=== PATIENT | male | born 2000 | race Caucasian/White ===

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

== ENCOUNTER 2020-02-16 10:47 | Emergency (ER) | payer OTHER ==
[~2020-02-16] VITALS: Ht 170.2 cm; Wt 54.4 kg
[2020-02-16] MEDS ORDERED: PROMETHAZINE HCL (IM) 25 MG/ML VIAL IM ONE (11:15)
[2020-02-16] MEDS ORDERED: KETOROLAC TROMETHAMINE 60 MG/2 ML VIAL IM ONE (11:15)
[2020-02-16] MEDS ORDERED: ONDANSETRON HCL 4 MG ORAL DISINTEGRATING TAB PO ONE (11:15)
[2020-02-16 12:07] VITALS: BP 124/65
[2020-02-16] MEDS ORDERED: ONDANSETRON ODT8 MG PO (12:33)
[2020-02-16] MEDS ORDERED: CIPRO500 MG PO (12:33)
[2020-02-16] MEDS ORDERED: PREDNISONE20 MG PO (12:33)
[2020-02-16] MEDS ORDERED: METRONIDAZOLE500 MG PO (12:33)
[2020-02-16] MEDS ORDERED: PHENERGAN SUPP25 MG PR (12:33)
--- NOTE | 2020-02-16 12:33 | Emergency Department Note ---
History of Present Illnes History of Present Illness Chief Complaint: N/V/abdominal pain History of Present Illness This is a 20 year old male. h/o crohn's disease and marijuana induced n/v. was doing well until 1 day ago then abdominal pain(the same as crohn's pain)then n/v. pt has had multiple ct scans f abd/pelvis which have never showed any need for surgical intervention Historian: Patient Arrival Mode: Car History limited by: condition of the patient (normal) Legal Researcher Required: No Onset (how long ago): day(s) (1) Location: generalized abdominal pain Quality: dull Radiation: Reports non-radiation Severity: mild Onset quality: gradual Duration (how long): day(s) (1) Timing of current episode: intermittent Progression: waxing and waning Chronicity: recurrent Context: Denies recent illness, Denies recent surgery, Denies recent immobilization, Denies recent travel, Denies trauma/injury, Denies new medications, Denies hx of DVT/PE, Denies non-compliance w/ medications Relieving factors: none Exacerbating factors: none Associated symptoms: Reports malaise, Reports nausea/vomiting Treatments prior to arrival: none Past Medical/Family History Physician Review I have reviewed the patient's past medical and family history. Any updates have been documented here. Past Medical History Recent Fever: No Clinical Suspicion of Infectio: No New/Unexplained Change in Ment: No Past Medical History: None, Asthma Other Medical History: SMOKES MARIJUANA (I explained last visit earlier this month that he needs to stop, that this could be Cannabinoid Hyperemesis Syndrome but he continues to smoke weed daily, CHRONIC PROBLEM WITH N/V) Past Surgical History: None Other Surgery: denies Social History Smoking Cessation: Current every day smoker Counseling Performed: No Alcohol Use: None Any Illegal Drug Use: Yes (daily marijuana abuse) Other Last Tetanus: UTD Any Pre-Existing Lines (PICC,: No Review of Systems Review of Systems Constitutional: Reports no symptoms EENTM: Reports no symptoms Cardiovascular: Reports no symptoms Respiratory: Reports no symptoms Gastrointestinal: Reports as per HPI Genitourinary: Reports no symptoms Musculoskeletal: Reports no symptoms Integumentary: Reports no symptoms Neurological: Reports no symptoms Psychological: Reports no symptoms Endocrine: Reports no symptoms Hematological/Lymphatic: Reports no symptoms Physical Exam Related Data Allergies: Coded Allergies: No Known Allergies (Unverified , 09/27/13) Triage Vital Signs Vital Signs Date Time Temp Pulse Resp B/P (MAP) Pulse Ox O2 Delivery O2 Flow Rate FiO2 02/16/20 10:51 98.4 57 18 138/70 100 Room Air Vital signs reviewed: Yes Physical Exam CONSTITUTIONAL Constitutional: Present well-developed, Present well-nourished HENT HENT: Present normocephalic, Present atraumatic, Present oropharynx clear/moist, Present nose normal HENT L/R: Present left ext ear normal, Present right ext ear normal EYES Eyes: Reports PERRL, Reports conjunctivae normal NECK Neck: Present ROM normal PULMONARY Pulmonary: Present effort normal, Present breath sounds normal CARDIOVASCULAR Cardiovascular: Present regular rhythm, Present heart sounds normal, Present capillary refill normal, Present normal rate GASTROINTESTINAL Abdominal: Present soft, Present nontender, Present bowel sounds normal GENITOURINARY Genitourinary: Present exam deferred SKIN Skin: Present warm, Present dry MUSCULOSKELETAL Musculoskeletal: Present ROM normal NEUROLOGICAL Neurological: Present alert, Present oriented x 3, Present no gross motor or sensory deficits PSYCHOLOGICAL Psychological: Present mood/affect normal, Present judgement normal Assessment & Plan Medical Decision Making [facility] crohns Reassessment Reassessment time: 12:30 Reassessment symptoms resolved Assessment & Plan Final Impression: (1) Nausea & vomiting (2) Crohn's disease, acute Depart Disposition: HOME, SELF-CARE Last Vital Signs Date Time Temp Pulse Resp B/P (MAP) Pulse Ox O2 Delivery O2 Flow Rate FiO2 02/16/20 12:07 58 18 99 02/16/20 10:51 98.4 138/70 Room Air Home Meds Active Scripts Metronidazole (METRONIDAZOLE) 500 Mg Tablet, 500 MG PO Q8H, #30 TAB take with juice and food Prov:SINDI HERNANDEZ 02/16/20 Ciprofloxacin Hcl (CIPRO) 500 Mg Tablet, 500 MG PO Q12H, #20 TAB Prov:SINDI HERNANDEZ 02/16/20 Prednisone (PREDNISONE) 20 Mg Tab, 60 MG PO DAILY, #15 TAB take all 3 20 mg pills at once Prov:SINDI HERNANDEZ 02/16/20 Promethazine Hcl* (PHENERGAN SUPP*) 25 Mg Supp, 25 MG [place] Q4HR PRN for NAUSEA AND VOMITING, #30 SUPP.RECT 1 Refill take after ondansetron to control nausea/vomiting Prov:SINDI HERNANDEZ 02/16/20 Ondansetron (ONDANSETRON ODT) 8 Mg Tab.rapdis, 4 MG PO Q4HR PRN for NAUSEA AND VOMITING, #30 TAB Prov:SINDI HERNANDEZ 02/16/20 Potassium Chloride (POTASSIUM CHLORIDE) 20 Meq Tab.er.prt, 20 MEQ PO BID for 2 Days, #4 TAB Prov:JOHAN MUNROE [employer]ING [employer] WRITER 05/01/19 Promethazine Hcl* (PHENERGAN SUPP*) 25 Mg Supp, 25 MG RC Q8HR PRN for NAUSEA AND VOMITING for 10 Days, #10 Prov:LASHA DO NP 04/28/19 Medications in the ED Ketorolac Tromethamine 60 mg ONCE ONCE IM Last administered on 02/16/20at 11:24; Admin Dose 60 MG; Start 02/16/20 at 11:15; Stop 02/16/20 at 11:27; Status DC Promethazine HCl 25 mg ONCE ONCE IM Last administered on 02/16/20at 11:25; Admin Dose 25 MG; Start 02/16/20 at 11:15; Stop 02/16/20 at 11:27; Status DC Ondansetron HCl 8 mg ONCE ONCE PO Last administered on 02/16/20at 11:25; Admin Dose 8 MG; Start 02/16/20 at 11:15; Stop 02/16/20 at 11:27; Status DC SINDI HERNANDEZ Feb 16, 2020 12:33
== END 2020-02-16 12:46 | disposition home or self-care (01) ==
LOC: ER 11:20
DX: R11.2 Nausea with vomiting, unspecified (principal); K50.90 Crohn's disease, unspecified, without complications; F17.210 Nicotine dependence, cigarettes, uncomplicated
CPT/HCPCS: 99284; J1885; J2550; Q0162

== ENCOUNTER 2020-02-17 16:15 | Emergency (ER) | payer SELFPAY ==
[~2020-02-17] VITALS: Ht 170.2 cm; Wt 54.4 kg
[~2020-02-17 16:15] MED LIST changes: +CIPRO500 MG PO; +METRONIDAZOLE500 MG PO; +ONDANSETRON ODT8 MG PO; +PHENERGAN SUPP25 MG PR; +PREDNISONE20 MG PO
[2020-02-17] MEDS ORDERED: HALOPERIDOL LACTATE 5 MG/ML VIAL IM ONE (17:15)
[2020-02-17] MEDS ORDERED: PROMETHAZINE HCL 25 MG TAB PO ONE (17:15)
--- NOTE | 2020-02-17 18:07 | Emergency Department Note ---
History of Present Illnes History of Present Illness Chief Complaint: Abdominal Complaints History of Present Illness This is a 20 year old male returns to the ED for n/v prior to arrival . Reports that that his symptoms improved from yesterday but reports that he had sudden onset of n/v . Seen at bedside NAD. Historian: Patient Arrival Mode: Car Onset (how long ago): hour(s) Radiation: Reports non-radiation Severity: mild Onset quality: gradual Progression: partially resolved Chronicity: recurrent Context: Reports new medications, Reports non-compliance w/ medications Relieving factors: none Associated symptoms: Reports nausea/vomiting Previous service: medications given, tests performed, one or more referrals, re-evaluation Past Medical/Family History Physician Review I have reviewed the patient's past medical and family history. Any updates have been documented here. Past Medical History Recent Fever: No Clinical Suspicion of Infectio: No New/Unexplained Change in Ment: No Past Medical History: Asthma Other Medical History: SMOKES MARIJUANA (I explained last visit earlier this month that he needs to stop, that this could be Cannabinoid Hyperemesis Syndrome but he continues to smoke weed daily, CHRONIC PROBLEM WITH N/V) Past Surgical History: None Other Surgery: denies Social History Counseling Performed: Yes Any Illegal Drug Use: Yes Physically hurt or threatened: No Other Last Tetanus: UTD Review of Systems Review of Systems Constitutional: Reports no symptoms EENTM: Reports no symptoms Cardiovascular: Reports no symptoms Respiratory: Reports no symptoms Gastrointestinal: Reports nausea, Reports vomiting Genitourinary: Reports no symptoms Musculoskeletal: Reports no symptoms Integumentary: Reports no symptoms Neurological: Reports no symptoms Psychological: Reports no symptoms Endocrine: Reports no symptoms Hematological/Lymphatic: Reports no symptoms Physical Exam Related Data Allergies: Coded Allergies: No Known Allergies (Unverified , 09/27/13) Triage Vital Signs Vital Signs Date Time Temp Pulse Resp B/P (MAP) Pulse Ox O2 Delivery O2 Flow Rate FiO2 02/17/20 16:20 98.8 71 16 153/91 100 Room Air Vital signs reviewed: Yes Physical Exam CONSTITUTIONAL Constitutional: Present well-developed, Present well-nourished HENT HENT: Present normocephalic, Present atraumatic, Present oropharynx clear/moist, Present nose normal HENT L/R: Present left ext ear normal, Present right ext ear normal EYES Eyes: Reports PERRL, Reports conjunctivae normal NECK Neck: Present ROM normal PULMONARY Pulmonary: Present effort normal, Present breath sounds normal CARDIOVASCULAR Cardiovascular: Present regular rhythm, Present heart sounds normal, Present capillary refill normal, Present normal rate GASTROINTESTINAL Abdominal: Present soft, Present nontender, Present bowel sounds normal GENITOURINARY Genitourinary: Present exam deferred SKIN Skin: Present warm, Present dry MUSCULOSKELETAL Musculoskeletal: Present ROM normal NEUROLOGICAL Neurological: Present alert, Present oriented x 3, Present no gross motor or sensory deficits PSYCHOLOGICAL Psychological: Present mood/affect normal, Present judgement normal Assessment & Plan Medical Decision Making MDM MDM : marijuana induced hyperemesis Assessment & Plan Final Impression: (1) Nausea & vomiting Depart Disposition: LEFT AFTER MEDICAL SCREENING Last Vital Signs Date Time Temp Pulse Resp B/P (MAP) Pulse Ox O2 Delivery O2 Flow Rate FiO2 02/17/20 16:20 98.8 71 16 153/91 100 Room Air Home Meds Active Scripts Metronidazole (METRONIDAZOLE) 500 Mg Tablet, 500 MG PO Q8H, #30 TAB take with juice and food Prov:SINDI HERNANDEZ 02/16/20 Ciprofloxacin Hcl (CIPRO) 500 Mg Tablet, 500 MG PO Q12H, #20 TAB Prov:SINDI HERNANDEZ 02/16/20 Prednisone (PREDNISONE) 20 Mg Tab, 60 MG PO DAILY, #15 TAB take all 3 20 mg pills at once Prov:SINDI HERNANDEZ 02/16/20 Promethazine Hcl* (PHENERGAN SUPP*) 25 Mg Supp, 25 MG [place] Q4HR PRN for NAUSEA AND VOMITING, #30 SUPP.RECT 1 Refill take after ondansetron to control nausea/vomiting Prov:DAVIDSINDIEMILY MICHAEL 02/16/20 Ondansetron (ONDANSETRON ODT) 8 Mg Tab.rapdis, 4 MG PO Q4HR PRN for NAUSEA AND VOMITING, #30 TAB Prov:SINDI HERNANDEZ 02/16/20 Potassium Chloride (POTASSIUM CHLORIDE) 20 Meq Tab.er.prt, 20 MEQ PO BID for 2 Days, #4 TAB Prov:JOHAN MUNROE AIRCRAFT ELECTRICIAN 05/01/19 Promethazine Hcl* (PHENERGAN SUPP*) 25 Mg Supp, 25 MG RC Q8HR PRN for NAUSEA AND VOMITING for 10 Days, #10 Prov:LASHA DO AIRCRAFT ELECTRICIAN 04/28/19 Medications in the ED Promethazine HCl 25 mg NOW ONCE PO ; Start 02/17/20 at 17:15; Stop 02/17/20 at 17:16; Status DC Haloperidol Lactate 2 mg ONCE ONCE IM ; Start 02/17/20 at 17:15; Stop 02/17/20 at 17:16; Status DC KATERIN HERNANDEZ DO Feb 17, 2020 18:07
[2020-02-17] MEDS ORDERED: SODIUM CHLORIDE 0.9% 1000ML 1,000 ML IV STA (18:34)
--- NOTE | 2020-02-17 18:38 | NUR ---
PER MD HERNANDEZ, [facility]. NO EMERGENCY MEDICAL CONDITION EXISTS.
[2020-02-17] MEDS ORDERED: NALOXONE HCL 2MG/2 ML SYRINGE IV ONE (18:45)
[2020-02-17 18:58] VITALS: BP 120/94
--- OUTSIDE RECORDS SUMMARY | 2020-02-19 16:20 | XMS REPORT | Continuity of Care Document ---
Author Author [facility] t Organization [facility] Address [address] [place] [address] Phone Unavailable Care Team Providers Care Network Communications Engineer Name Role Phone NONSTAFF PCP Unavailable Melisa LAINEZ Attphys Unavailable MEHDI FOSS Attphys Unavailable Payers Payer Name Policy Type Policy Number Effective Date Expiration Date Kevin johnson [facility] [id number] [facility] Problems Condition Name Condition Details Condition Category Status Onset Date Resolution Date Last Treatment Date Treating Clinician Comments Source Abdominal pain Abdominal pain Problem Active [facility] Hypokalemia Hypokalemia Problem Active [facility] Vomiting Vomiting Problem Active [facility] Cannabinoid hyperemesis syndrome Problem Active [facility] Nausea and vomiting Problem Active [facility] Acute Crohn's disease Problem Active [facility] Allergies, Adverse Reactions, Alerts This patient has no known allergies or adverse reactions. Social History Social Habit Start Date Stop Date Quantity Comments Source Sex Assigned At 2000 00:00:00 2000 00:00:00 Male [facility] Medications Ordered Medication Name Filled Medication Name Start Date Stop Da te Current Medication? Ordering Clinician Indication Dosage Frequency Signature (SIG) Comments Components Source Ciprofloxacin Hcl (Cipro) 500 Mg TABLET Ciprofloxacin Hcl (C ipro) 500 Mg TABLET 2020-02-16 12:33:00 Yes 500 Every 12 Hours [facility] Metronidazole Metronidazole 2020-02-16 12:33:00 Yes 50 0 Every 8 Hours [facility] Ondansetron (Ondansetron Odt) 8 Mg TAB.HELADIODIS Ondanset blair (Ondansetron Odt) 8 Mg TAB.RAPDIS 2020-02-16 12:33:00 Yes 4 E very 4 Hours as needed for Nausea And Vomiting [facility] Prednisone Prednisone 2020-02-16 12:33:00 Yes [address] [place] [address] [facility] Promethazine Hcl (Phenergan Supp*) 25 Mg SUPP Prometha zine Hcl (Phenergan Supp*) 25 Mg SUPP 2020-02-16 12:33:00 Yes 25 E very 4 Hours as needed for Nausea And Vomiting [facility] Potassium Chloride Potassium Chloride 2019-05-01 18:37:00 Yes 20 Twice A Day [facility] Promethazine Hcl (Phenergan Supp*) 25 Mg SUPP Prometha zine Hcl (Phenergan Supp*) 25 Mg SUPP 2019-04-28 13:40:00 Yes 25 E very 8 Hours as needed for Nausea And Vomiting [facility] Cetirizine Hcl (Zyrtec) 10 Mg TAB.CHEW Cetirizine Hcl (Zyrtec) 1 0 Mg TAB.CHEW 2019-04-27 00:00:00 No [facility] Montelukast Sodium (Singulair) [address] Sodium (Singulair) 4 Mg TAB.CHEW 2019-04-27 00:00:00 No [facility] Vital Signs Vital Name Observation Time Observation Value Comments Source Weight 2020-02-17 16:20:00 120 [lb_av] [facility] BMI (Body Mass Index) 2020-02-17 16:20:00 18.8 kg/m2 [facility] Body Temperature 2020-02-16 12:07:00 98.3 [degF] [facility] Weight 2020-02-16 10:51:00 120 [lb_av] [facility] BMI (Body Mass Index) 2020-02-16 10:51:00 18.8 kg/m2 [facility] Body Temperature 2019-11-23 11:02:00 98.0 [degF] [facility] Weight 2019-11-23 08:17:00 120 [lb_av] [facility] BMI (Body Mass Index) 2019-11-23 08:17:00 18.8 kg/m2 [facility] Weight 2019-11-01 11:48:00 120 [lb_av] [facility] BMI (Body Mass Index) 2019-11-01 11:48:00 18.8 kg/m2 [facility] Body Temperature 2019-04-28 14:50:00 98.7 [degF] [facility] Procedures Procedure Date / Time Performed Performing Clinician [facility] [place] Computed tomography of brain without radiopaque contrast 2020-01 00:00:00 [facility] EMERGENCY DEPT VISIT 2020-02-16 00:00:00 [facility] Computed tomography of abdomen and pelvis with contrast 00:00:00 [facility] Computed tomography of abdomen and pelvis with contrast 2018 00:00:00 KEMAL BLUM [facility] Encounters Start Date/Time End Date[facility]Time [facility] ID Source 2020-02-17 16:49:00 2020-02-17 19:00:00 Departed Emergency Room [facility] [id number] [facility] 2020-02-16 11:20:00 2020-02-16 12:46:00 Departed Emergency Room [facility] [id number] [facility] 2019-11-23 08:20:00 2019-11-23 11:31:00 Departed Emergency Room 1 [facility] [id number] [facility] 2019-11-01 11:38:00 2019-11-01 14:36:00 Departed Emergency Room 1 [facility] [id number] [facility] 2019-05-01 16:45:00 2019-05-01 19:42:00 Departed Emergency Room [facility] [id number] [facility] [place] 2019-04-27 16:52:00 2019-04-28 14:56:00 Discharged Inpatient (obs) 1 MEHDI FOSS [facility] [id number] [facility] 2019-01-09 05:57:00 2019-01-09 11:31:00 Departed Emergency Room 1 ALTAGRACIA LAINEZ [facility] [id number] [facility] Results Test Description Test Time Test Comments Results Result Comments Source CT ABDOMEN/PELVIS W 2019-11-23 10:15:00 [place] [address] Patient Name: JING GARZA MR #: [id number] : 2000 Age/Sex: 19/M Req #: [id number] Adm Physician: Ordered by: ALTAGRACIA LAINEZ MD Report #: [id number] Location: ER Room/Bed: Procedure: [id number] CT/CT ABDOMEN/PELVIS W Exam Date: 11/23/19 Exam Time: 0950 REPORT STATUS: Signed EXAM: CT Abdomen and Pelvis WITH intravenous contrast INDICATION: Abdominal pain COMPARISON: CT abdomen and pelvis of 04/27/2019 TECHNIQUE: Abdomen and pelvis were scanned utilizing a multidetector helical scanner from the lung base to the pubic sym physis after administration of IV contrast. Coronal and sagittal reformations were obtained. Routine protocol was performed. Scan was performed during portal venous phase. IV CONTRAST: 100mL of Isovue 370 ORAL CONTRAST: Water RADIATION DOSE: Total DLP: 263 mGy*cm Dose modulation, iterative reconstruction, and/or weight based adjustment of the mA/kV was utilized to reduce the radiation dose to as low as reasonably achievable. FINDINGS: LOWER THORAX: Normal. HEPATOBILIARY: No focal hepatic lesions. No biliary ductal dilatation. The gallbladder appears unremarkable. SPLEEN: No splenomegaly. PANCREAS: No focal masses or ductal dilatation. ADRENALS: No adrenal nodules. KIDNEYS/URETERS: No hydronephrosis, stones, or solid mass lesions. PELVIC ORGANS/BLADDER: Unremarkable. PERITONEUM / RETROPERITONEUM: No free air or fluid. LYMPH NODES: No lymphadenopathy. VESSELS: Unremarkable. GI TRACT: No distention or wall thickening. Normal appendix. BONES AND SOFT TISSUES: Unremarkable. IMPRESSION: No acute findings in the abdomen or pelvis. Signed by: Ivania Story MD on 11/23/2019 10:21 AM Dictated By: IVANIA STORY MD 1021 Transcribed By: SUMAYA on 11/23/19 1021 COPY TO: ALTAGRACIA LAINEZ MD Blood leukocytes automated count (number/volume) 2019-11-23 08:26:00 Test Item White Blood Count (test code = 6690-2) 16.00 4.8-10.8 [facility] automated count (number/volume)2019-11-23 08:26:00* Test Item Value Reference Range Interpretation Comments Red Blood Count (test code = 789-8) 4.96 4.3-5.7 [facility] hemoglobin measurement (moles/volume)2019-11-23 08:26:00* Test Item Value Reference Range Interpretation Comments Hemoglobin (test code = 78176-4) 15.4 14.0-18.0 [facility] HospitalAutomated blood hematocrit (volume fraction)2019-11-23 08:26:00* Test Item Value Reference Range Interpretation Comments Hematocrit (test code = 4544-3) 41.6 38.2-49.6 [facility] HospitalAutomated erythrocyte mean corpuscular tusgae8530-25-24 08:26:00* Test Item Value Reference Range Interpretation Comments Mean Corpuscular Volume (test code = 787-2) 83.9 81-99 [facility] HospitalAutomated erythrocyte mean corpuscular hemoglobin (mass per erythrocyte)2019-11-23 08:26:00* Test Item Value Reference Range Interpretation Comments Mean Corpuscular Hemoglobin (test code = 785-6) 31.0 28-32 [facility] HospitalAutomated erythrocyte mean corpuscular hemoglobin concentration measurement (mass/volume)2019-11-23 08:26:00* Test Item Value Reference Range Interpretation Comments Mean Corpuscular Hemoglobin Concent (test code = 786-4) 37.0 31-35 [facility] HospitalRDW FxfJj-Akf5457-61-01 08:26:00* Test Item Value Reference Range Interpretation Comments Red Cell Distribution Width (test code = 65514-2) 11.6 11.7 -14.4 [facility] HospitalAutomated blood platelet count (count/volume)2019-11-23 08:26:00* Test Item Value Reference Range Interpretation Comments Platelet Count (test code = 777-3) 240 140-360 [facility] HospitalAutnov[facility] hospitaled blood segmented neutrophil count as percentage of total iatuminfsh7227-35-14 08:26:00* Test Item Value Reference Range Interpretation Comments Neutrophils (%) (Auto) (test code = 72505-8) 88.6 38.7-80.0 [facility] HospitalAutomated blood lymphocyte count as percentage ot total qpbpjzbnum2408-47-83 08:26:00* Test Item Value Reference Range Interpretation Comments Lymphocytes (%) (Auto) (test code = 736-9) 5.7 18.0-39.1 [facility] HospitalAutomated blood monocyte count as percentage of total nlbdrzacsb7068-94-23 08:26:00* Test Item Value Reference Range Interpretation Comments Monocytes (%) (Auto) (test code = 5905-5) 4.8 4.4-11.3 [facility] HospitalAutomated blood eosinophil count as percentage of total gwdcbhfaon1662-55-36 08:26:00* Test Item Value Reference Range Interpretation Comments Eosinophils (%) (Auto) (test code = 713-8) 0.0 0.0-6.0 [facility] HospitalAutomated blood basophil count as percentage of total pfbmhdnrep9403-32-43 08:26:00* Test Item Value Reference Range Interpretation Comments Basophils (%) (Auto) (test code = 706-2) 0.4 0.0-1.0 [facility] HospitalFluoroscopic procedure less than one hour orziddbo6746-87-22 08:26:00* Test Item Value Reference Range Interpretation Comments IM GRANULOCYTES % (test code = IM GRANULOCYTES %) 0.5 0.0- 1.0 [facility] HospitalAutomated blood neutrophil count 2019-11-23 08:26:00* Test Item Value Reference Range Interpretation Comments Neutrophils # (Auto) (test code = 751-8) 14.2 2.1-6.9 [facility] HospitalBlood lymphocytes count (number/volume) 2019-11-23 08:26:00* Test Item Value Reference Range Interpretation Comments Lymphocytes # (Auto) (test code = 55001-9) 0.9 1.0-3.2 [facility] monocytes automated count (number/volume)2019-11-23 08:26:00* Test Item Value Reference Range Interpretation Comments Monocytes # (Auto) (test code = 742-7) 0.8 0.2-0.8 [facility] HospitalAutomated blood eosinophil count 2019-11-23 08:26:00* Test Item Value Reference Range Interpretation Comments Eosinophils # (Auto) (test code = 711-2) 0.0 0.0-0.4 [facility] HospitalAutomated blood basophil count (count/volume)2019-11-23 08:26:00* Test Item Value Reference Range Interpretation Comments Basophils # (Auto) (test code = 704-7) 0.1 0.0-0.1 [facility] HospitalFluoroscopic procedure less than one hour ujqicczz3953-67-73 08:26:00* Test Item Value Reference Range Interpretation Comments Absolute Immature Granulocyte (auto (inocencio t code = Absolute Immature Granulocyte (auto) 0.08 0-0.1 [facility] HospitalUrine color yzlfppzxdghpp0404-59-32 08:26:00* Test Item Value Reference Range Interpretation Comments Urine Color (test code = 5778-6) YELLOW YELLOW [facility] HospitalUrine iadoywq2174-49-76 08:26:00* Test Item Value Reference Range Interpretation Comments Urine Clarity (test code = 99197-4) CLEAR CLEAR [facility] Urine by Test strip 2019-11-23 08:26:00* Test Item Value Reference Range Interpretation Comments Urine Specific [place] (test code = 5811-5) 1.015 1.010-1.02 5 [facility] HospitalUrine pH measurement by automated test mzdea9188-10-32 08:26:00* Test Item Value Reference Range Interpretation Comments Urine pH (test code = 49344-0) >=9 5-7 [facility] HospitalUrine leukocyte esterase detection by orvfgdzl6261-79-20 08:26:00* Test Item Value Reference Range Interpretation Comments Urine Leukocyte Esterase (test code = 5799-2) NEGATIVE NEGATIVE [facility] HospitalUrine nitrite ddfcumlad1548-69-78 08:26:00* Test Item Value Reference Range Interpretation Comments Urine Nitrite (test code = 89190-6) NEGATIVE NEGATIVE [facility] HospitalUrine protein measurement by test strip (mass/volume)2019-11-23 08:26:00* Test Item Value Reference Range Interpretation Comments Urine Protein (test code = 5804-0) 2+ NEGATIVE [facility] HospitalUrine glucose fbvkekueg2939-15-57 08:26:00* Test Item Value Reference Range Interpretation Comments Urine Glucose (UA) (test code = 2349-9) NEGATIVE NEGATIVE [facility] HospitalUrine ketones detection by automated test mijop4597-50-51 08:26:00* Test Item Value Reference Range Interpretation Comments Urine Ketones (test code = 71675-7) >=160 NEGATIVE [facility] HospitalUrine opiates screening ekvh5094-30-62 08:26:00* Test Item Value Reference Range Interpretation Comments Urine Opiates Screen (test code = 75021-6) NEGATIVE NEGATIVE ALL TESTS PERFORMED MANUALLY ON BIlprospekt TOX/SEE TESTMethodist Children's HospitalBarbiturates screen, fnvpa1955-64-47 08:26:00* Test Item Value Reference Range Interpretation Comments Urine Barbiturates Screen (test code = 852625838) NEGATIVE NEGA TIVE [facility] HospitalUrine phencyclidine detection by screening xykiao0258-86-21 08:26:00* Test Item Value Reference Range Interpretation Comments Urine Phencyclidine Screen (test code = 30063-9) NEGATIVE NEGAT SIMI [facility] HospitalUrine amphetamines detection by screen method > 1000 ng/oB8829-54-22 08:26:00* Test Item Value Reference Range Interpretation Comments Urine Amphetamines Screen (test code = 46113-6) NEGATIVE NEGATI VE [facility] HospitalFluoroscopic procedure less than one hour kbwbxezo6874-38-04 08:26:00* Test Item Value Reference Range Interpretation Comments Urine Methamphetamines Screen (test code = Urine Metha mphetamines Screen) NEGATIVE NEGATIVE [facility] HospitalUrine benzodiazepines detection by screening xqtipw2924-59-88 08:26:00* Test Item Value Reference Range Interpretation Comments Urine Benzodiazepines Screen (test code = 67180-0) NEGATIVE NEG ATIVE [facility] HospitalUrine cocaine measurement (mass/volume) 2019-11-23 08:26:00* Test Item Value Reference Range Interpretation Comments Urine Cocaine Screen (test code = 3398-5) NEGATIVE NEGATIVE [facility] HospitalUrine cannabinoids detection by screening aqviwt5761-05-80 08:26:00* Test Item Value Reference Range Interpretation Comments Urine Cannabinoids Screen (test code = 69435-1) POSITIVE NEGATI VE This test provides only a screen. Positive results should be repeated by a confi rmatory test.[facility] HospitalUrine methadone screen 2019-11-23 08:26:00* Test Item Value Reference Range Interpretation Comments Urine Methadone Screen (test code = 39607-5) NEGATIVE NEGATIVE THESE RESULTS ARE FOR MEDICAL TREATMENT ONLYTHIS REPORT CONTAINS UNCONFIR MED SCREENING RESULTS*POSITIVE RESULTS WILL BE CONFIRMED BY REFERENCE LAB UPON R EQUEST CUT-OFFDRUG CLASS CONCENTRATION ng/mLAmphetamines 1000Methamphetamines 1000Cocaine Metabolite 300Opiate 300Phencyc lidine 25Cannabinoid 50Barbiturates 300Benzodiazepine 300Methadone 300[facility] urobilinogen measurement by test strip (mass/volume)2019-11-23 08:26:00* Test Item Value Reference Range Interpretation Comments Urine Urobilinogen (test code = 62795-7) 0.2 0.2-1 [facility] HospitalUrine total bilirubin measurement (mass/volume)2019-11-23 08:26:00* Test Item Value Reference Range Interpretation Comments Urine Bilirubin (test code = 1978-6) NEGATIVE NEGATIVE [facility] HospitalUrine erythrocytes atihifpwv0460-23-05 08:26:00* Test Item Value Reference Range Interpretation Comments Urine Blood (test code = 97433-5) NEGATIVE NEGATIVE [facility] HospitalAutomated urine sediment leukocyte count by microscopy (number/high power field)2019-11-23 08:26:00* Test Item Value Reference Range Interpretation Comments Urine WBC (test code = 5821-4) 0-5 0-5 [facility] HospitalErythrocytes detection in urine sediment by light qljtwlbxqp4263-69-54 08:26:00* Test Item Value Reference Range Interpretation Comments Urine RBC (test code = 56770-4) 0-5 0-5 [facility] HospitalBacteria detection in urine sediment by light qcvzidxjyf3422-09-72 08:26:00* Test Item Value Reference Range Interpretation Comments Urine Bacteria (test code = 21962-4) MODERATE NONE [facility] HospitalEpithelial cells detection in urine sediment by light ayznuucgat2532-51-78 08:26:00* Test Item Value Reference Range Interpretation Comments Urine Epithelial Cells (test code = 93242-7) RARE NONE [facility]ere[facility] or plasma sodium measurement (moles/volume)2019-11-23 08:26:00* Test Item Value Reference Range Interpretation Comments Sodium Level (test code = 2951-2) 142 136-145 [facility] Centererum or plasma potassium measurement (moles/volume)2019-11-23 08:26:00* Test Item Value Reference Range Interpretation Comments Potassium Level (test code = 2823-3) 3.8 3.5-5.1 [facility] Centererum or plasma chloride measurement (moles/volume)2019-11-23 08:26:00* Test Item Value Reference Range Interpretation Comments Chloride Level (test code = 2075-0) 106 98-107 [facility] Centererum or plasma carbon dioxide, total measurement (moles/volume)2019-11-23 08:26:00* Test Item Value Reference Range Interpretation Comments Carbon Dioxide Level (test code = 2028-9) 21 22-29 [facility] Centererum or plasma anion ysc6104-00-71 08:26:00* Test Item Value Reference Range Interpretation Comments Anion Gap (test code = 69210-1) 18.8 8-16 [facility]ere[facility] or plasma urea nitrogen measurement (mass/volume)2019-11-23 08:26:00* Test Item Value Reference Range Interpretation Comments Blood Urea Nitrogen (test code = 3094-0) 12 7- [facility]ererum or plasma creatinine measurement (mass/volume)2019-11-23 08:26:00* Test Item Value Reference Range Interpretation Comments Creatinine (test code = 2160-0) 0.97 0.72-1.25 [facility]ererum or plasma urea nitrogen/creatinine mass vjzxc0430-40-41 08:26:00* Test Item Value Reference Range Interpretation Comments BUN/Creatinine Ratio (test code = 3097-3) 12 6-25 [facility] HospitalEstimated glomerular filtration rate (GFR) fmetbparsuajg7053-39-30 08:26:00* Test Item Value Reference Range Interpretation Comments Estimat Glomerular Filtration Rate (test code = 112756966) > 60 >60 Ranges were taken from the National Kidney Disease Education Program and the [facility], [facility] Kid[employer] Foundation literature.Reference ranges:60 or greater: Mzwuob91-04 ( for 3 consecutive months): Chronic kidney disease 15 or less: Kidney failureMethodist Children's HospitalGlucose dgtykcbkrsq3028-30-78 08:26:00* Test Item Value Reference Range Interpretation Comments Glucose Level (test code = RWL6308) 164 74-118 [facility]ere[facility] or plasma calcium measurement (mass/volume)2019-11-23 08:26:00* Test Item Value Reference Range Interpretation Comments Calcium Level (test code = 70113-1) 10.7 8.4-10.2 [facility] plasma magnesium measurement (mass/volume)2019-11-23 08:26:00* Test Item Value Reference Range Interpretation Comments Magnesium Level (test code = 15753-6) 1.8 1.3-2.1 [facility] or plasma total bilirubin measurement (mass/volume)2019-11-23 08:26:00* Test Item Value Reference Range Interpretation Comments Total Bilirubin (test code = 1975-2) 0.9 0.2-1.2 [facility] HospitalFluoroscopic procedure less than one hour iyusdolg6806-11-69 08:26:00* Test Item Value Reference Range Interpretation Comments Aspartate Amino Transf (AST/SGOT) (test code = Aspartate Amino Transf (AST/SGOT)) 18 5-34 [facility]ererum or plasma alanine aminotransferase measurement (enzymatic activity/volume)2019-11-23 08:26:00* Test Item Value Reference Range Interpretation Comments Alanine Aminotransferase (ALT/SGPT) (test code = 1742-6) 21 0-55 [facility]ere[facility] or plasma protein measurement (mass/volume)2019-11-23 08:26:00* Test Item Value Reference Range Interpretation Comments Total Protein (test code = 2885-2) 7.9 6.5-8.1 [facility]ere[facility] or plasma albumin measurement (mass/volume)2019-11-23 08:26:00* Test Item Value Reference Range Interpretation Comments Albumin (test code = 1751-7) 5.2 3.5-5.0 [facility] HospitalPlasma globulin measurement (mass/volume) 2019-11-23 08:26:00* Test Item Value Reference Range Interpretation Comments Globulin (test code = 70856-8) 2.7 2.3-3.5 [facility]ere[facility] or plasma albumin/globulin mass aixyi9293-96-73 08:26:00* Test Item Value Reference Range Interpretation Comments Albumin/Globulin Ratio (test code = 1759-0) 1.9 0.8-2.0 [facility]ererum or plasma alkaline phosphatase measurement (enzymatic activity/volume)2019-11-23 08:26:00* Test Item Value Reference Range Interpretation Comments Alkaline Phosphatase (test code = 6768-6) 78 40-150 [facility]Bl[facility] leukocytes automated count (number/volume)2019-11-23 08:26:00* Test Item Value Reference Range Interpretation Comments White Blood Count (test code = 6690-2) 16.00 4.8-10.8 [facility] HospitalBlood erythrocytes automated count (number/volume)2019-11-23 08:26:00* Test Item Value Reference Range Interpretation Comments Red Blood Count (test code = 789-8) 4.96 4.3-5.7 [facility] hemoglobin measurement (moles/volume)2019-11-23 08:26:00* Test Item Value Reference Range Interpretation Comments Hemoglobin (test code = 92248-2) 15.4 14.0-18.0 [facility] HospitalAutomated blood hematocrit (volume fraction)2019-11-23 08:26:00* Test Item Value Reference Range Interpretation Comments Hematocrit (test code = 4544-3) 41.6 38.2-49.6 [facility] HospitalAutomated erythrocyte mean corpuscular zvlacx1151-71-69 08:26:00* Test Item Value Reference Range Interpretation Comments Mean Corpuscular Volume (test code = 787-2) 83.9 81-99 [facility] HospitalAutomated erythrocyte mean corpuscular hemoglobin (mass per erythrocyte)2019-11-23 08:26:00* Test Item Value Reference Range Interpretation Comments Mean Corpuscular Hemoglobin (test code = 785-6) 31.0 28-32 [facility] HospitalAutomated erythrocyte mean corpuscular hemoglobin concentration measurement (mass/volume)2019-11-23 08:26:00* Test Item Value Reference Range Interpretation Comments Mean Corpuscular Hemoglobin Concent (test code = 786-4) 37.0 31-35 [facility] HospitalRDW NxsTy-Hdr1453-64-01 08:26:00* Test Item Value Reference Range Interpretation Comments Red Cell Distribution Width (test code = 97804-4) 11.6 11.7 -14.4 [facility] HospitalAutomated blood platelet count (count/volume)2019-11-23 08:26:00* Test Item Value Reference Range Interpretation Comments Platelet Count (test code = 777-3) 240 140-360 [facility] HospitalAutomated blood segmented neutrophil count as percentage of total pdmoestycm5828-40-04 08:26:00* Test Item Value Reference Range Interpretation Comments Neutrophils (%) (Auto) (test code = 15390-6) 88.6 38.7-80.0 [facility] HospitalAutnovant health [facility] hospitaled blood lymphocyte count as percentage ot total tmikwtlxiy6302-42-02 08:26:00* Test Item Value Reference Range Interpretation Comments Lymphocytes (%) (Auto) (test code = 736-9) 5.7 18.0-39.1 [facility] HospitalAutomated blood monocyte count as percentage of total qcyczzjlfa0362-23-77 08:26:00* Test Item Value Reference Range Interpretation Comments Monocytes (%) (Auto) (test code = 5905-5) 4.8 4.4-11.3 [facility] eosinophil count as percentage of total hgpdvlicos4163-95-71 08:26:00* Test Item Value Reference Range Interpretation Comments Eosinophils (%) (Auto) (test code = 713-8) 0.0 0.0-6.0 [facility] HospitalAutomated blood basophil count as percentage of total bihqbklggr6538-51-17 08:26:00* Test Item Value Reference Range Interpretation Comments Basophils (%) (Auto) (test code = 706-2) 0.4 0.0-1.0 [facility] HospitalFluoroscopic procedure less than one hour vwgaiiof5191-63-85 08:26:00* Test Item Value Reference Range Interpretation Comments IM GRANULOCYTES % (test code = IM GRANULOCYTES %) 0.5 0.0- 1.0 [facility] HospitalAutomated blood neutrophil count 2019-11-23 08:26:00* Test Item Value Reference Range Interpretation Comments Neutrophils # (Auto) (test code = 751-8) 14.2 2.1-6.9 [facility] HospitalBlood lymphocytes count (number/volume) 2019-11-23 08:26:00* Test Item Value Reference Range Interpretation Comments Lymphocytes # (Auto) (test code = 26847-5) 0.9 1.0-3.2 [facility] HospitalBlood monocytes automated count (number/volume)2019-11-23 08:26:00* Test Item Value Reference Range Interpretation Comments Monocytes # (Auto) (test code = 742-7) 0.8 0.2-0.8 [facility] HospitalAutomated blood eosinophil count 2019-11-23 08:26:00* Test Item Value Reference Range Interpretation Comments Eosinophils # (Auto) (test code = 711-2) 0.0 0.0-0.4 [facility] HospitalAutomated blood basophil count (count/volume)2019-11-23 08:26:00* Test Item Value Reference Range Interpretation Comments Basophils # (Auto) (test code = 704-7) 0.1 0.0-0.1 [facility] HospitalFluoroscopic procedure less than one hour cfvhmplq0311-75-07 08:26:00* Test Item Value Reference Range Interpretation Comments Absolute Immature Granulocyte (auto (inocencio t code = Absolute Immature Granulocyte (auto) 0.08 0-0.1 [facility] HospitalUrine color vdpywyeidbhsl4420-81-12 08:26:00* Test Item Value Reference Range Interpretation Comments Urine Color (test code = 5778-6) YELLOW YELLOW [facility] HospitalUrine upvssfl9941-43-60 08:26:00* Test Item Value Reference Range Interpretation Comments Urine Clarity (test code = 51653-4) CLEAR CLEAR [facility] Urine by Test strip 2019-11-23 08:26:00* Test Item Value Reference Range Interpretation Comments Urine Specific [place] (test code = 5811-5) 1.015 1.010-1.02 5 [facility] HospitalUrine pH measurement by automated test vgevp7475-75-00 08:26:00* Test Item Value Reference Range Interpretation Comments Urine pH (test code = 57754-8) >=9 5-7 [facility] HospitalUrine leukocyte esterase detection by wcinqorp3533-97-80 08:26:00* Test Item Value Reference Range Interpretation Comments Urine Leukocyte Esterase (test code = 5799-2) NEGATIVE NEGATIVE [facility] HospitalUrine nitrite ptmxfxpdt4618-55-01 08:26:00* Test Item Value Reference Range Interpretation Comments Urine Nitrite (test code = 26394-5) NEGATIVE NEGATIVE [facility] HospitalUrine protein measurement by test strip (mass/volume)2019-11-23 08:26:00* Test Item Value Reference Range Interpretation Comments Urine Protein (test code = 5804-0) 2+ NEGATIVE [facility] HospitalUrine glucose tsjzzodjt0449-48-83 08:26:00* Test Item Value Reference Range Interpretation Comments Urine Glucose (UA) (test code = 2349-9) NEGATIVE NEGATIVE [facility] HospitalUrine ketones detection by automated test opvli3681-45-09 08:26:00* Test Item Value Reference Range Interpretation Comments Urine Ketones (test code = 28639-1) >=160 NEGATIVE [facility] HospitalUrine opiates screening orfo3508-35-97 08:26:00* Test Item Value Reference Range Interpretation Comments Urine Opiates Screen (test code = 15519-2) NEGATIVE NEGATIVE ALL TESTS PERFORMED MANUALLY ON BIlprospekt TOX/SEE TESTMethodist Children's HospitalBarbiturates screen, olzys7834-21-17 08:26:00* Test Item Value Reference Range Interpretation Comments Urine Barbiturates Screen (test code = 107405037) NEGATIVE NEGA TIVE [facility] HospitalUrine phencyclidine detection by screening xpwcme7200-64-13 08:26:00* Test Item Value Reference Range Interpretation Comments Urine Phencyclidine Screen (test code = 78701-1) NEGATIVE NEGAT SIMI [facility] HospitalUrine amphetamines detection by screen method > 1000 ng/fW6672-72-28 08:26:00* Test Item Value Reference Range Interpretation Comments Urine Amphetamines Screen (test code = 53304-1) NEGATIVE NEGATI VE [facility] HospitalFluoroscopic procedure less than one hour idikfeqf4432-79-02 08:26:00* Test Item Value Reference Range Interpretation Comments Urine Methamphetamines Screen (test code = Urine Metha mphetamines Screen) NEGATIVE NEGATIVE [facility] HospitalUrine benzodiazepines detection by screening skfqtc6818-13-99 08:26:00* Test Item Value Reference Range Interpretation Comments Urine Benzodiazepines Screen (test code = 49887-3) NEGATIVE NEG ATIVE [facility] HospitalUrine cocaine measurement (mass/volume) 2019-11-23 08:26:00* Test Item Value Reference Range Interpretation Comments Urine Cocaine Screen (test code = 3398-5) NEGATIVE NEGATIVE [facility] HospitalUrine cannabinoids detection by screening wvbchu1272-36-13 08:26:00* Test Item Value Reference Range Interpretation Comments Urine Cannabinoids Screen (test code = 11292-6) POSITIVE NEGATI VE This test provides only a screen. Positive results should be repeated by a confi rmatory test.[facility] HospitalUrine methadone screen 2019-11-23 08:26:00* Test Item Value Reference Range Interpretation Comments Urine Methadone Screen (test code = 84583-8) NEGATIVE NEGATIVE THESE RESULTS ARE FOR MEDICAL TREATMENT ONLYTHIS REPORT CONTAINS UNCONFIR MED SCREENING RESULTS*POSITIVE RESULTS WILL BE CONFIRMED BY REFERENCE LAB UPON R EQUEST CUT-OFFDRUG CLASS CONCENTRATION ng/mLAmphetamines 1000Methamphetamines 1000Cocaine Metabolite 300Opiate 300Phencyc lidine 25Cannabinoid 50Barbiturates 300Benzodiazepine 300Methadone 300[facility] urobilinogen measurement by test strip (mass/volume)2019-11-23 08:26:00* Test Item Value Reference Range Interpretation Comments Urine Urobilinogen (test code = 85047-0) 0.2 0.2-1 [facility] HospitalUrine total bilirubin measurement (mass/volume)2019-11-23 08:26:00* Test Item Value Reference Range Interpretation Comments Urine Bilirubin (test code = 1978-6) NEGATIVE NEGATIVE [facility] HospitalUrine erythrocytes lbyeskbob4932-37-80 08:26:00* Test Item Value Reference Range Interpretation Comments Urine Blood (test code = 42493-5) NEGATIVE NEGATIVE [facility] HospitalAutomated urine sediment leukocyte count by microscopy (number/high power field)2019-11-23 08:26:00* Test Item Value Reference Range Interpretation Comments Urine WBC (test code = 5821-4) 0-5 0-5 [facility] HospitalErythrocytes detection in urine sediment by light qetahvatfb6765-42-51 08:26:00* Test Item Value Reference Range Interpretation Comments Urine RBC (test code = 55201-4) 0-5 0-5 [facility] HospitalBacteria detection in urine sediment by light rrccubjlmp0892-33-53 08:26:00* Test Item Value Reference Range Interpretation Comments Urine Bacteria (test code = 17404-9) MODERATE NONE [facility] HospitalEpithelial cells detection in urine sediment by light rnolssbtfo9930-89-13 08:26:00* Test Item Value Reference Range Interpretation Comments Urine Epithelial Cells (test code = 49162-9) RARE NONE [facility]ererum [facility] plasma sodium measurement (moles/volume)2019-11-23 08:26:00* Test Item Value Reference Range Interpretation Comments Sodium Level (test code = 2951-2) 142 136-145 [facility]ererum or plasma potassium measurement (moles/volume)2019-11-23 08:26:00* Test Item Value Reference Range Interpretation Comments Potassium Level (test code = 2823-3) 3.8 3.5-5.1 [facility]ere[facility] or plasma chloride measurement (moles/volume)2019-11-23 08:26:00* Test Item Value Reference Range Interpretation Comments Chloride Level (test code = 2075-0) 106 98-107 [facility]ererum or plasma carbon dioxide, total measurement (moles/volume)2019-11-23 08:26:00* Test Item Value Reference Range Interpretation Comments Carbon Dioxide Level (test code = 2028-9) 21 22-29 [facility]ererum or plasma anion [id number] 08:26:00* Test Item Value Reference Range Interpretation Comments Anion Gap (test code = 47534-9) 18.8 8-16 [facility]ererum or plasma urea nitrogen measurement (mass/volume)2019-11-23 08:26:00* Test Item Value Reference Range Interpretation Comments Blood Urea Nitrogen (test code = 3094-0) 12 12-17 [facility]ererum or plasma creatinine measurement (mass/volume)2019-11-23 08:26:00* Test Item Value Reference Range Interpretation Comments Creatinine (test code = 2160-0) 0.97 0.72-1.25 [facility]ererum or plasma urea nitrogen/creatinine mass wveaq4141-91-98 08:26:00* Test Item Value Reference Range Interpretation Comments BUN/Creatinine Ratio (test code = 3097-3) 12 11-16 [facility] HospitalEstimated glomerular filtration rate (GFR) gnsmlqinfkzzl9394-52-12 08:26:00* Test Item Value Reference Range Interpretation Comments Estimat Glomerular Filtration Rate (test code = 724388809) > 60 >60 Ranges were taken from the National Kidney Disease Education Program and the Count includes the [facility] Kidney Foundation literature.Reference ranges:60 or greater: Zkkcvn49-33 ( for 3 consecutive months): Chronic kidney disease 15 or less: Kidney failureMethodist Children's HospitalGlucose dwsfthjwego9976-17-21 08:26:00* Test Item Value Reference Range Interpretation Comments Glucose Level (test code = VBW3916) 164 74-118 [facility]ererum or plasma calcium measurement (mass/volume)2019-11-23 08:26:00* Test Item Value Reference Range Interpretation Comments Calcium Level (test code = 70542-1) 10.7 8.4-10.2 [facility]ererum or plasma magnesium measurement (mass/volume)2019-11-23 08:26:00* Test Item Value Reference Range Interpretation Comments Magnesium Level (test code = 43047-0) 1.8 1.3-2.1 [facility]ererum or plasma total bilirubin measurement (mass/volume)2019-11-23 08:26:00* Test Item Value Reference Range Interpretation Comments Total Bilirubin (test code = 1975-2) 0.9 0.2-1.2 [facility] HospitalFluoroscopic procedure less than one hour bfuphmzw0164-39-99 08:26:00* Test Item Value Reference Range Interpretation Comments Aspartate Amino Transf (AST/SGOT) (test code = Aspartate Amino Transf (AST/SGOT)) 18 5-34 [facility] Centererum or plasma alanine aminotransferase measurement (enzymatic activity/volume)2019-11-23 08:26:00* Test Item Value Reference Range Interpretation Comments Alanine Aminotransferase (ALT/SGPT) (test code = 1742-6) 21 0-55 [facility]ererum or plasma protein measurement (mass/volume)2019-11-23 08:26:00* Test Item Value Reference Range Interpretation Comments Total Protein (test code = 2885-2) 7.9 6.5-8.1 [facility]ererum or plasma albumin measurement (mass/volume)2019-11-23 08:26:00* Test Item Value Reference Range Interpretation Comments Albumin (test code = 1751-7) 5.2 3.5-5.0 [facility] HospitalPlasma globulin measurement (mass/volume) 2019-11-23 08:26:00* Test Item Value Reference Range Interpretation Comments Globulin (test code = 43644-8) 2.7 2.3-3.5 [facility]ererum or plasma albumin/globulin mass amhcn6077-36-46 08:26:00* Test Item Value Reference Range Interpretation Comments Albumin/Globulin Ratio (test code = 1759-0) 1.9 0.8-2.0 [facility]ererum or plasma alkaline phosphatase measurement (enzymatic activity/volume)2019-11-23 08:26:00* Test Item Value Reference Range Interpretation Comments Alkaline Phosphatase (test code = 6768-6) 78 40-150 [facility] HospitalBlood leukocytes automated count (number/volume)2019-11-23 08:26:00* Test Item Value Reference Range Interpretation Comments White Blood Count (test code = 6690-2) 16.00 4.8-10.8 [facility] HospitalBlood erythrocytes automated count (number/volume)2019-11-23 08:26:00* Test Item Value Reference Range Interpretation Comments Red Blood Count (test code = 789-8) 4.96 4.3-5.7 [facility] HospitalBlood hemoglobin measurement (moles/volume)2019-11-23 08:26:00* Test Item Value Reference Range Interpretation Comments Hemoglobin (test code = 82548-7) 15.4 14.0-18.0 [facility] HospitalAutomated blood hematocrit (volume fraction)2019-11-23 08:26:00* Test Item Value Reference Range Interpretation Comments Hematocrit (test code = 4544-3) 41.6 38.2-49.6 [facility] HospitalAutomated erythrocyte mean corpuscular ipqbwk6203-41-13 08:26:00* Test Item Value Reference Range Interpretation Comments Mean Corpuscular Volume (test code = 787-2) 83.9 81-99 [facility] HospitalAutomated erythrocyte mean corpuscular hemoglobin (mass per erythrocyte)2019-11-23 08:26:00* Test Item Value Reference Range Interpretation Comments Mean Corpuscular Hemoglobin (test code = 785-6) 31.0 28-32 [facility] HospitalAutomated erythrocyte mean corpuscular hemoglobin concentration measurement (mass/volume)2019-11-23 08:26:00* Test Item Value Reference Range Interpretation Comments Mean Corpuscular Hemoglobin Concent (test code = 786-4) 37.0 31-35 [facility] HospitalRDW DvpBs-Wfj9187-54-01 08:26:00* Test Item Value Reference Range Interpretation Comments Red Cell Distribution Width (test code = 67093-7) 11.6 11.7 -14.4 [facility] HospitalAutomated blood platelet count (count/volume)2019-11-23 08:26:00* Test Item Value Reference Range Interpretation Comments Platelet Count (test code = 777-3) 240 140-360 [facility]ered [facility] segmented neutrophil count as percentage of total libgldtbls9462-82-15 08:26:00* Test Item Value Reference Range Interpretation Comments Neutrophils (%) (Auto) (test code = 76003-4) 88.6 38.7-80.0 [facility] HospitalAutomated blood lymphocyte count as percentage ot total qeaoidqwde1432-03-31 08:26:00* Test Item Value Reference Range Interpretation Comments Lymphocytes (%) (Auto) (test code = 736-9) 5.7 18.0-39.1 [facility] HospitalAutomated blood monocyte count as percentage of total esyvxwzxtp6781-65-72 08:26:00* Test Item Value Reference Range Interpretation Comments Monocytes (%) (Auto) (test code = 5905-5) 4.8 4.4-11.3 [facility] HospitalAutomated blood eosinophil count as percentage of total uwuvsiwzhy0662-61-17 08:26:00* Test Item Value Reference Range Interpretation Comments Eosinophils (%) (Auto) (test code = 713-8) 0.0 0.0-6.0 [facility] HospitalAutomated blood basophil count as percentage of total eynwidunjw1221-17-16 08:26:00* Test Item Value Reference Range Interpretation Comments Basophils (%) (Auto) (test code = 706-2) 0.4 0.0-1.0 [facility] HospitalFluoroscopic procedure less than one hour xcmtqffw3820-95-71 08:26:00* Test Item Value Reference Range Interpretation Comments IM GRANULOCYTES % (test code = IM GRANULOCYTES %) 0.5 0.0- 1.0 [facility] HospitalAutomated blood neutrophil count 2019-11-23 08:26:00* Test Item Value Reference Range Interpretation Comments Neutrophils # (Auto) (test code = 751-8) 14.2 2.1-6.9 [facility] HospitalBlood lymphocytes count (number/volume) 2019-11-23 08:26:00* Test Item Value Reference Range Interpretation Comments Lymphocytes # (Auto) (test code = 29296-2) 0.9 1.0-3.2 [facility] HospitalBlood monocytes automated count (number/volume)2019-11-23 08:26:00* Test Item Value Reference Range Interpretation Comments Monocytes # (Auto) (test code = 742-7) 0.8 0.2-0.8 [facility] HospitalAutomated blood eosinophil count 2019-11-23 08:26:00* Test Item Value Reference Range Interpretation Comments Eosinophils # (Auto) (test code = 711-2) 0.0 0.0-0.4 [facility] HospitalAutomated blood basophil count (count/volume)2019-11-23 08:26:00* Test Item Value Reference Range Interpretation Comments Basophils # (Auto) (test code = 704-7) 0.1 0.0-0.1 [facility] HospitalFluoroscopic procedure less than one hour yyzjrmka0077-88-40 08:26:00* Test Item Value Reference Range Interpretation Comments Absolute Immature Granulocyte (auto (inocencio t code = Absolute Immature Granulocyte (auto) 0.08 0-0.1 [facility] HospitalUrine color hungbvztjetin2020-37-11 08:26:00* Test Item Value Reference Range Interpretation Comments Urine Color (test code = 5778-6) YELLOW YELLOW [facility] HospitalUrine zawilyu2685-14-56 08:26:00* Test Item Value Reference Range Interpretation Comments Urine Clarity (test code = 37872-1) CLEAR CLEAR [facility] Centerpecific gravity of Urine by Test strip 2019-11-23 08:26:00* Test Item Value Reference Range Interpretation Comments Urine Specific [place] (test code = 5811-5) 1.015 1.010-1.02 5 [facility] HospitalUrine pH measurement by automated test gyysk3933-73-39 08:26:00* Test Item Value Reference Range Interpretation Comments Urine pH (test code = 34782-9) >=9 5-7 [facility] HospitalUrine leukocyte esterase detection by whbffnqw6613-41-57 08:26:00* Test Item Value Reference Range Interpretation Comments Urine Leukocyte Esterase (test code = 5799-2) NEGATIVE NEGATIVE [facility] HospitalUrine nitrite szgezjzqq7848-62-41 08:26:00* Test Item Value Reference Range Interpretation Comments Urine Nitrite (test code = 54041-8) NEGATIVE NEGATIVE [facility] HospitalUrine protein measurement by test strip (mass/volume)2019-11-23 08:26:00* Test Item Value Reference Range Interpretation Comments Urine Protein (test code = 5804-0) 2+ NEGATIVE [facility] HospitalUrine glucose ccyfbysrn2884-29-57 08:26:00* Test Item Value Reference Range Interpretation Comments Urine Glucose (UA) (test code = 2349-9) NEGATIVE NEGATIVE [facility] HospitalUrine ketones detection by automated test qppws0137-84-06 08:26:00* Test Item Value Reference Range Interpretation Comments Urine Ketones (test code = 78744-8) >=160 NEGATIVE [facility] HospitalUrine opiates screening rbzq5509-60-04 08:26:00* Test Item Value Reference Range Interpretation Comments Urine Opiates Screen (test code = 54493-9) NEGATIVE NEGATIVE ALL TESTS PERFORMED MANUALLY ON BIlprospekt TOX/SEE TESTMethodist Children's HospitalBarbiturates screen, dhewr5311-11-75 08:26:00* Test Item Value Reference Range Interpretation Comments Urine Barbiturates Screen (test code = 233949506) NEGATIVE NEGA TIVE [facility] HospitalUrine phencyclidine detection by screening xeqxfn4838-31-06 08:26:00* Test Item Value Reference Range Interpretation Comments Urine Phencyclidine Screen (test code = 41799-2) NEGATIVE NEGAT SIMI [facility] HospitalUrine amphetamines detection by screen method > 1000 ng/jS9046-33-05 08:26:00* Test Item Value Reference Range Interpretation Comments Urine Amphetamines Screen (test code = 68592-0) NEGATIVE NEGATI VE [facility] HospitalFluoroscopic procedure less than one hour xdzdugtk9279-92-28 08:26:00* Test Item Value Reference Range Interpretation Comments Urine Methamphetamines Screen (test code = Urine Metha mphetamines Screen) NEGATIVE NEGATIVE [facility] HospitalUrine benzodiazepines detection by screening ylbifi8000-96-20 08:26:00* Test Item Value Reference Range Interpretation Comments Urine Benzodiazepines Screen (test code = 08643-7) NEGATIVE NEG ATIVE [facility] HospitalUrine cocaine measurement (mass/volume) 2019-11-23 08:26:00* Test Item Value Reference Range Interpretation Comments Urine Cocaine Screen (test code = 3398-5) NEGATIVE NEGATIVE [facility] HospitalUrine cannabinoids detection by screening mggwtt9005-53-17 08:26:00* Test Item Value Reference Range Interpretation Comments Urine Cannabinoids Screen (test code = 35684-3) POSITIVE NEGATI VE This test provides only a screen. Positive results should be repeated by a confi rmatory test.[facility] HospitalUrine methadone screen 2019-11-23 08:26:00* Test Item Value Reference Range Interpretation Comments Urine Methadone Screen (test code = 91386-2) NEGATIVE NEGATIVE THESE RESULTS ARE FOR MEDICAL TREATMENT ONLYTHIS REPORT CONTAINS UNCONFIR MED SCREENING RESULTS*POSITIVE RESULTS WILL BE CONFIRMED BY REFERENCE LAB UPON R EQUEST CUT-OFFDRUG CLASS CONCENTRATION ng/mLAmphetamines 1000Methamphetamines 1000Cocaine Metabolite 300Opiate 300Phencyc lidine 25Cannabinoid 50Barbiturates 300Benzodiazepine 300Methadone 300[facility] HospitalUrine urobilinogen measurement by test strip (mass/volume)2019-11-23 08:26:00* Test Item Value Reference Range Interpretation Comments Urine Urobilinogen (test code = 71818-8) 0.2 0.2-1 [facility] HospitalUrine total bilirubin measurement (mass/volume)2019-11-23 08:26:00* Test Item Value Reference Range Interpretation Comments Urine Bilirubin (test code = 1978-6) NEGATIVE NEGATIVE [facility] HospitalUrine erythrocytes nnccuisib9843-57-37 08:26:00* Test Item Value Reference Range Interpretation Comments Urine Blood (test code = 48113-9) NEGATIVE NEGATIVE [facility] HospitalAutomated urine sediment leukocyte count by microscopy (number/high power field)2019-11-23 08:26:00* Test Item Value Reference Range Interpretation Comments Urine WBC (test code = 5821-4) 0-5 0-5 [facility] HospitalErythrocytes detection in urine sediment by light zundebymch1372-98-32 08:26:00* Test Item Value Reference Range Interpretation Comments Urine RBC (test code = 61658-5) 0-5 0-5 [facility] HospitalBacteria detection in urine sediment by light npnbibuuxj9589-29-78 08:26:00* Test Item Value Reference Range Interpretation Comments Urine Bacteria (test code = 91682-9) MODERATE NONE [facility] HospitalEpithelial cells detection in urine sediment by light dzrvxclogv3846-15-72 08:26:00* Test Item Value Reference Range Interpretation Comments Urine Epithelial Cells (test code = 36972-8) RARE NONE [facility]ere[facility] sodium measurement (moles/volume)2019-11-23 08:26:00* Test Item Value Reference Range Interpretation Comments Sodium Level (test code = 2951-2) 142 136-145 [facility]ererum or plasma potassium measurement (moles/volume)2019-11-23 08:26:00* Test Item Value Reference Range Interpretation Comments Potassium Level (test code = 2823-3) 3.8 3.5-5.1 [facility]ere[facility] or plasma chloride measurement (moles/volume)2019-11-23 08:26:00* Test Item Value Reference Range Interpretation Comments Chloride Level (test code = 2075-0) 106 98-107 [facility]ererum or plasma carbon dioxide, total measurement (moles/volume)2019-11-23 08:26:00* Test Item Value Reference Range Interpretation Comments Carbon Dioxide Level (test code = 2028-9) 21 22-29 [facility]ererum or plasma anion gqw3984-38-77 08:26:00* Test Item Value Reference Range Interpretation Comments Anion Gap (test code = 73267-8) 18.8 8-16 [facility] Centererum or plasma urea nitrogen measurement (mass/volume)2019-11-23 08:26:00* Test Item Value Reference Range Interpretation Comments Blood Urea Nitrogen (test code = 3094-0) 12 7-26 [facility] creatinine measurement (mass/volume)2019-11-23 08:26:00* Test Item Value Reference Range Interpretation Comments Creatinine (test code = 2160-0) 0.97 0.72-1.25 [facility] or plasma urea nitrogen/creatinine mass vvtnk6802-27-31 08:26:00* Test Item Value Reference Range Interpretation Comments BUN/Creatinine Ratio (test code = 3097-3) 12 6- [facility] HospitalEstimated glomerular filtration rate (GFR) opdyziyhbvrea8775-24-56 08:26:00* Test Item Value Reference Range Interpretation Comments Estimat Glomerular Filtration Rate (test code = 663687226) > 60 >60 Ranges were taken from the National Kidney Disease Education Program and the [facility] literature.Reference ranges:60 or greater: Shwiua48-25 ( for 3 consecutive months): Chronic kidney disease 15 or less: Kidney failureMethodist Children's HospitalGlucose usfqqxpscmx9776-99-92 08:26:00* Test Item Value Reference Range Interpretation Comments Glucose Level (test code = WHX7526) 164 74-118 [facility] or plasma calcium measurement (mass/volume)2019-11-23 08:26:00* Test Item Value Reference Range Interpretation Comments Calcium Level (test code = 69436-5) 10.7 8.4-10.2 [facility] magnesium measurement (mass/volume)2019-11-23 08:26:00* Test Item Value Reference Range Interpretation Comments Magnesium Level (test code = 68047-0) 1.8 1.3-2.1 [facility] or plasma total bilirubin measurement (mass/volume)2019-11-23 08:26:00* Test Item Value Reference Range Interpretation Comments Total Bilirubin (test code = 1975-2) 0.9 0.2-1.2 [facility] HospitalFluoroscopic procedure less than one hour dktakztr5853-02-66 08:26:00* Test Item Value Reference Range Interpretation Comments Aspartate Amino Transf (AST/SGOT) (test code = Aspartate Amino Transf (AST/SGOT)) 18 5-34 [facility] or plasma alanine aminotransferase measurement (enzymatic activity/volume)2019-11-23 08:26:00* Test Item Value Reference Range Interpretation Comments Alanine Aminotransferase (ALT/SGPT) (test code = 1742-6) 21 0-55 [facility] or plasma protein measurement (mass/volume)2019-11-23 08:26:00* Test Item Value Reference Range Interpretation Comments Total Protein (test code = 2885-2) 7.9 6.5-8.1 [facility] or plasma albumin measurement (mass/volume)2019-11-23 08:26:00* Test Item Value Reference Range Interpretation Comments Albumin (test code = 1751-7) 5.2 3.5-5.0 [facility] HospitalPlasma globulin measurement (mass/volume) 2019-11-23 08:26:00* Test Item Value Reference Range Interpretation Comments Globulin (test code = 83392-0) 2.7 2.3-3.5 [facility] or plasma albumin/globulin mass dbyrn4595-54-75 08:26:00* Test Item Value Reference Range Interpretation Comments Albumin/Globulin Ratio (test code = 1759-0) 1.9 0.8-2.0 [facility]ere[facility] or plasma alkaline phosphatase measurement (enzymatic activity/volume)2019-11-23 08:26:00* Test Item Value Reference Range Interpretation Comments Alkaline Phosphatase (test code = 6768-6) 78 40-150 [facility] HospitalABDOMEN ACUTE SERIES W/PA [id number] 13:33:00 [facility] [address] [place] [address] Patient Name: JING GARZA MR #: [id number] : 2000 Age/Sex: 19/M Req #: [id number] Adm Physician: Ordered by: ALTAGRACIA LAINEZ MD Report #: [id number] Location: ER Room/Bed: Procedure: [id number] DX/ABDOMEN ACU TE SERIES W/PA CXR Exam Date: 11/01/19 Exam Time: 12 45 REPORT STATUS: Signed Abdo men, 2 views, with upright chest. History: Nausea and vomiting. Fin dings: Cardiac silhouette and pulmonary vessels are normal. The lungs are choco r. Air is scattered throughout nondilated small and large bowel. There are no air-fluid levels. There is no evidence of free air. There are no masses or abnormal calcifications. The osseous structures are intact. IMPRESSIO N: 1. No pulmonary abnormality. 2. Nonobstructive bowel gas pattern. Signed by: Kemal Lopez on 11/01/2019 1:34 PM Dictated By: KEMAL LOPEZ MD 33 Transcribed By: SUMAYA on 11/01/191333 COPY TO: ALTAGRACIA LAINEZ MD Blood leukocytes automated count (number/volume)2019-11-01 11:20:00* Test Item Value Reference Range Interpretation Comments White Blood Count (test code = 6690-2) 6.42 4.8-10.8 [facility] HospitalBlood erythrocytes automated count (number/volume)2019-11-01 11:20:00* Test Item Value Reference Range Interpretation Comments Red Blood Count (test code = 789-8) 5.38 4.3-5.7 [facility] HospitalBlood hemoglobin measurement (moles/volume)2019-11-01 11:20:00* Test Item Value Reference Range Interpretation Comments Hemoglobin (test code = 85677-1) 16.6 14.0-18.0 [facility] HospitalAutomated blood hematocrit (volume fraction)2019-11-01 11:20:00* Test Item Value Reference Range Interpretation Comments Hematocrit (test code = 4544-3) 46.5 38.2-49.6 [facility] HospitalAutomated erythrocyte mean corpuscular kjaptq6589-28-61 11:20:00* Test Item Value Reference Range Interpretation Comments Mean Corpuscular Volume (test code = 787-2) 86.4 81-99 [facility] HospitalAutomated erythrocyte mean corpuscular hemoglobin (mass per erythrocyte)2019-11-01 11:20:00* Test Item Value Reference Range Interpretation Comments Mean Corpuscular Hemoglobin (test code = 785-6) 30.9 28-32 [facility] HospitalAutomated erythrocyte mean corpuscular hemoglobin concentration measurement (mass/volume)2019-11-01 11:20:00* Test Item Value Reference Range Interpretation Comments Mean Corpuscular Hemoglobin Concent (test code = 786-4) 35.7 31-35 [facility] HospitalRDW AljIk-Ene2552-88-09 11:20:00* Test Item Value Reference Range Interpretation Comments Red Cell Distribution Width (test code = 93654-2) 11.9 11.7 -14.4 [facility] HospitalAutomated blood platelet count (count/volume)2019-11-01 11:20:00* Test Item Value Reference Range Interpretation Comments Platelet Count (test code = 777-3) 195 140-360 [facility] HospitalAutomated blood segmented neutrophil count as percentage of total gonddsznyn4617-99-43 11:20:00* Test Item Value Reference Range Interpretation Comments Neutrophils (%) (Auto) (test code = 45918-2) 50.8 38.7-80.0 [facility] HospitalAutomated blood lymphocyte count as percentage ot total mbytmhzhgu7420-55-71 11:20:00* Test Item Value Reference Range Interpretation Comments Lymphocytes (%) (Auto) (test code = 736-9) 30.8 18.0-39.1 [facility] HospitalAutomated blood monocyte count as percentage of total hpddjrkdbq6916-40-46 11:20:00* Test Item Value Reference Range Interpretation Comments Monocytes (%) (Auto) (test code = 5905-5) 11.4 4.4-11.3 [facility] HospitalAutomated blood eosinophil count as percentage of total rdcfyuwnjt0408-20-01 11:20:00* Test Item Value Reference Range Interpretation Comments Eosinophils (%) (Auto) (test code = 713-8) 5.9 0.0-6.0 [facility] HospitalAutomated blood basophil count as percentage of total wkpmhnbegn3219-95-45 11:20:00* Test Item Value Reference Range Interpretation Comments Basophils (%) (Auto) (test code = 706-2) 0.9 0.0-1.0 [facility] HospitalFluoroscopic procedure less than one hour iixhmqrc9423-01-80 11:20:00* Test Item Value Reference Range Interpretation Comments IM GRANULOCYTES % (test code = IM GRANULOCYTES %) 0.2 0.0- 1.0 [facility] HospitalAutomated blood neutrophil count 2019-11-01 11:20:00* Test Item Value Reference Range Interpretation Comments Neutrophils # (Auto) (test code = 751-8) 3.3 2.1-6.9 [facility] HospitalBlood lymphocytes count (number/volume) 2019-11-01 11:20:00* Test Item Value Reference Range Interpretation Comments Lymphocytes # (Auto) (test code = 33368-5) 2.0 1.0-3.2 [facility] HospitalBlood monocytes automated count (number/volume)2019-11-01 11:20:00* Test Item Value Reference Range Interpretation Comments Monocytes # (Auto) (test code = 742-7) 0.7 0.2-0.8 [facility] HospitalAutomated blood eosinophil count 2019-11-01 11:20:00* Test Item Value Reference Range Interpretation Comments Eosinophils # (Auto) (test code = 711-2) 0.4 0.0-0.4 [facility] HospitalAutomated blood basophil count (count/volume)2019-11-01 11:20:00* Test Item Value Reference Range Interpretation Comments Basophils # (Auto) (test code = 704-7) 0.1 0.0-0.1 [facility] HospitalFluoroscopic procedure less than one hour bskokeef1210-07-17 11:20:00* Test Item Value Reference Range Interpretation Comments Absolute Immature Granulocyte (auto (inocencio t code = Absolute Immature Granulocyte (auto) 0.01 0-0.1 [facility] HospitalUrine color wjjbngmrtigql1956-96-79 11:20:00* Test Item Value Reference Range Interpretation Comments Urine Color (test code = 5778-6) YELLOW YELLOW [facility] HospitalUrine bkretaf1896-83-65 11:20:00* Test Item Value Reference Range Interpretation Comments Urine Clarity (test code = 27604-1) CLEAR CLEAR [facility] Centerpecific gravity of Urine by Test strip 2019-11-01 11:20:00* Test Item Value Reference Range Interpretation Comments Urine Specific [place] (test code = 5811-5) 1.025 1.010-1.02 5 [facility] HospitalUrine pH measurement by automated test lckmx0523-47-97 11:20:00* Test Item Value Reference Range Interpretation Comments Urine pH (test code = 28306-2) 6.5 5-7 [facility] HospitalUrine leukocyte esterase detection by szxojtlh9551-38-51 11:20:00* Test Item Value Reference Range Interpretation Comments Urine Leukocyte Esterase (test code = 5799-2) NEGATIVE NEGATIVE [facility] HospitalUrine nitrite mplckhwwa1609-21-55 11:20:00* Test Item Value Reference Range Interpretation Comments Urine Nitrite (test code = 58228-7) NEGATIVE NEGATIVE [facility] HospitalUrine protein measurement by test strip (mass/volume)2019-11-01 11:20:00* Test Item Value Reference Range Interpretation Comments Urine Protein (test code = 5804-0) TRACE NEGATIVE [facility] HospitalUrine glucose rovsgrkmh0883-57-41 11:20:00* Test Item Value Reference Range Interpretation Comments Urine Glucose (UA) (test code = 2349-9) NEGATIVE NEGATIVE [facility] HospitalUrine ketones detection by automated test gfmvc0955-96-92 11:20:00* Test Item Value Reference Range Interpretation Comments Urine Ketones (test code = 62202-4) 1+ NEGATIVE [facility] HospitalUrine opiates screening wuft7019-16-33 11:20:00* Test Item Value Reference Range Interpretation Comments Urine Opiates Screen (test code = 47550-3) NEGATIVE NEGATIVE ALL TESTS PERFORMED MANUALLY ON BIlprospekt TOX/SEE TESTMethodist Children's HospitalBarbiturates screen, qvmoj0810-81-58 11:20:00* Test Item Value Reference Range Interpretation Comments Urine Barbiturates Screen (test code = 284371434) NEGATIVE NEGA TIVE [facility] HospitalUrine phencyclidine detection by screening yeehxw7696-47-55 11:20:00* Test Item Value Reference Range Interpretation Comments Urine Phencyclidine Screen (test code = 25877-5) NEGATIVE NEGAT SIMI [facility] HospitalUrine amphetamines detection by screen method > 1000 ng/tJ7917-34-36 11:20:00* Test Item Value Reference Range Interpretation Comments Urine Amphetamines Screen (test code = 08125-9) NEGATIVE NEGATI VE [facility] HospitalFluoroscopic procedure less than one hour qzvzifjo6823-55-42 11:20:00* Test Item Value Reference Range Interpretation Comments Urine Methamphetamines Screen (test code = Urine Metha mphetamines Screen) NEGATIVE NEGATIVE [facility] HospitalUrine benzodiazepines detection by screening clnfed9252-69-40 11:20:00* Test Item Value Reference Range Interpretation Comments Urine Benzodiazepines Screen (test code = 63391-9) NEGATIVE NEG ATIVE [facility] HospitalUrine cocaine measurement (mass/volume) 2019-11-01 11:20:00* Test Item Value Reference Range Interpretation Comments Urine Cocaine Screen (test code = 3398-5) NEGATIVE NEGATIVE [facility] HospitalUrine cannabinoids detection by screening sxufiy2152-90-07 11:20:00* Test Item Value Reference Range Interpretation Comments Urine Cannabinoids Screen (test code = 98846-7) POSITIVE NEGATI VE This test provides only a screen. Positive results should be repeated by a confi rmatory test.[facility] HospitalUrine methadone screen 2019-11-01 11:20:00* Test Item Value Reference Range Interpretation Comments Urine Methadone Screen (test code = 87467-2) NEGATIVE NEGATIVE THESE RESULTS ARE FOR MEDICAL TREATMENT ONLYTHIS REPORT CONTAINS UNCONFIR MED SCREENING RESULTS*POSITIVE RESULTS WILL BE CONFIRMED BY REFERENCE LAB UPON R EQUEST CUT-OFFDRUG CLASS CONCENTRATION ng/mLAmphetamines 1000Methamphetamines 1000Cocaine Metabolite 300Opiate 300Phencyc lidine 25Cannabinoid 50Barbiturates 300Benzodiazepine 300Methadone 300[facility] urobilinogen measurement by test strip (mass/volume)2019-11-01 11:20:00* Test Item Value Reference Range Interpretation Comments Urine Urobilinogen (test code = 68058-0) 2.0 0.2-1 [facility] HospitalUrine total bilirubin measurement (mass/volume)2019-11-01 11:20:00* Test Item Value Reference Range Interpretation Comments Urine Bilirubin (test code = 1978-6) SMALL NEGATIVE [facility] HospitalUrine erythrocytes zpvazjgzf5393-68-08 11:20:00* Test Item Value Reference Range Interpretation Comments Urine Blood (test code = 57222-3) NEGATIVE NEGATIVE [facility] HospitalAutomated urine sediment leukocyte count by microscopy (number/high power field)2019-11-01 11:20:00* Test Item Value Reference Range Interpretation Comments Urine WBC (test code = 5821-4) 6-10 0-5 [facility] HospitalErythrocytes detection in urine sediment by light wpoejsieyi9647-05-69 11:20:00* Test Item Value Reference Range Interpretation Comments Urine RBC (test code = 90034-7) 0-5 0-5 [facility] HospitalBacteria detection in urine sediment by light jbedfsprew9958-91-98 11:20:00* Test Item Value Reference Range Interpretation Comments Urine Bacteria (test code = 17258-0) MANY NONE [facility] HospitalEpithelial cells detection in urine sediment by light qzqfpxsvvq2099-58-01 11:20:00* Test Item Value Reference Range Interpretation Comments Urine Epithelial Cells (test code = 51349-5) RARE NONE [facility] HospitalMucus detection in urine sediment by light mgpmdeguwg7043-91-91 11:20:00* Test Item Value Reference Range Interpretation Comments Urine Mucus (test code = 8247-9) MODERATE RARE [facility] sodium measurement (moles/volume)2019-11-01 11:20:00* Test Item Value Reference Range Interpretation Comments Sodium Level (test code = 2951-2) 140 136-145 [facility]ere[facility] or plasma potassium measurement (moles/volume)2019-11-01 11:20:00* Test Item Value Reference Range Interpretation Comments Potassium Level (test code = 2823-3) 3.7 3.5-5.1 [facility] or plasma chloride measurement (moles/volume)2019-11-01 11:20:00* Test Item Value Reference Range Interpretation Comments Chloride Level (test code = 2075-0) 106 98-107 [facility]ererum or plasma carbon dioxide, total measurement (moles/volume)2019-11-01 11:20:00* Test Item Value Reference Range Interpretation Comments Carbon Dioxide Level (test code = 2028-9) 20 22-29 [facility]ere[facility] or plasma anion sqh5971-79-81 11:20:00* Test Item Value Reference Range Interpretation Comments Anion Gap (test code = 31075-5) 17.7 8-16 [facility]ere[facility] or plasma urea nitrogen measurement (mass/volume)2019-11-01 11:20:00* Test Item Value Reference Range Interpretation Comments Blood Urea Nitrogen (test code = 3094-0) 10 7-26 [facility]ere[facility] or plasma creatinine measurement (mass/volume)2019-11-01 11:20:00* Test Item Value Reference Range Interpretation Comments Creatinine (test code = 2160-0) 0.98 0.72-1.25 [facility]ererum or plasma urea nitrogen/creatinine mass teprv0758-63-21 11:20:00* Test Item Value Reference Range Interpretation Comments BUN/Creatinine Ratio (test code = 3097-3) 10 6-25 [facility] HospitalEstimated glomerular filtration rate (GFR) yjgjzeblxgxzr1814-44-85 11:20:00* Test Item Value Reference Range Interpretation Comments Estimat Glomerular Filtration Rate (test code = 144669552) > 60 >60 Ranges were taken from the National Kidney Disease Education Program and the [facility] Foundation literature.Reference ranges:60 or greater: Ymaquj79-93 ( for 3 consecutive months): Chronic kidney disease 15 or less: Kidney failureMethodist Children's HospitalGlucose eodowjlvaer1155-72-19 11:20:00* Test Item Value Reference Range Interpretation Comments Glucose Level (test code = VBR3014) 92 74-118 [facility]ere[facility] or plasma calcium measurement (mass/volume)2019-11-01 11:20:00* Test Item Value Reference Range Interpretation Comments Calcium Level (test code = 43739-0) 10.0 8.4-10.2 [facility] or plasma magnesium measurement (mass/volume)2019-11-01 11:20:00* Test Item Value Reference Range Interpretation Comments Magnesium Level (test code = 01001-0) 2.0 1.3-2.1 [facility]ererum or plasma total bilirubin measurement (mass/volume)2019-11-01 11:20:00* Test Item Value Reference Range Interpretation Comments Total Bilirubin (test code = 1975-2) 1.0 0.2-1.2 [facility] HospitalFluoroscopic procedure less than one hour wqeisodu7287-66-35 11:20:00* Test Item Value Reference Range Interpretation Comments Aspartate Amino Transf (AST/SGOT) (test code = Aspartate Amino Transf (AST/SGOT)) 18 5-34 [facility]ererum or plasma alanine aminotransferase measurement (enzymatic activity/volume)2019-11-01 11:20:00* Test Item Value Reference Range Interpretation Comments Alanine Aminotransferase (ALT/SGPT) (test code = 1742-6) 15 0-55 [facility]ererum or plasma protein measurement (mass/volume)2019-11-01 11:20:00* Test Item Value Reference Range Interpretation Comments Total Protein (test code = 2885-2) 7.7 6.5-8.1 [facility]ere[facility] or plasma albumin measurement (mass/volume)2019-11-01 11:20:00* Test Item Value Reference Range Interpretation Comments Albumin (test code = 1751-7) 5.0 3.5-5.0 [facility] HospitalPlasma globulin measurement (mass/volume) 2019-11-01 11:20:00* Test Item Value Reference Range Interpretation Comments Globulin (test code = 44641-5) 2.7 2.3-3.5 [facility]ere[facility] or plasma albumin/globulin mass nlhlc5052-42-83 11:20:00* Test Item Value Reference Range Interpretation Comments Albumin/Globulin Ratio (test code = 1759-0) 1.9 0.8-2.0 [facility]ererum or plasma alkaline phosphatase measurement (enzymatic activity/volume)2019-11-01 11:20:00* Test Item Value Reference Range Interpretation Comments Alkaline Phosphatase (test code = 6768-6) 78 40-150 [facility] HospitalMucus detection in urine sediment by light gwgvrpdgyu9911-80-58 11:20:00* Test Item Value Reference Range Interpretation Comments Urine Mucus (test code = 8247-9) MODERATE RARE [facility] HospitalMucus detection in urine sediment by light uifvsehurf7001-22-35 11:20:00* Test Item Value Reference Range Interpretation Comments Urine Mucus (test code = 8247-9) MODERATE RARE [facility] HospitalMucus detection in urine sediment by light ityqzznrbm5953-66-69 11:20:00* Test Item Value Reference Range Interpretation Comments Urine Mucus (test code = 8247-9) MODERATE RARE [facility] Centerodium Uggfz5649-76-81 18:57:00* Test Item Value Reference Range Interpretation Comments Sodium Level (test code = 2951-2) 142 136-145 [facility] HospitalPotassium Anupi1910-10-54 18:57:00* Test Item Value Reference Range Interpretation Comments Potassium Level (test code = 2823-3) 3.0 3.5-5.1 L [facility] HospitalChloride Cyupe5183-28-13 18:57:00* Test Item Value Reference Range Interpretation Comments Chloride Level (test code = 2075-0) 104 98-107 [facility] HospitalCarbon Dioxide Yvvoz2743-65-60 18:57:00* Test Item Value Reference Range Interpretation Comments Carbon Dioxide Level (test code = 2028-9) 19 22-29 L [facility] HospitalAnion Feh9439-30-56 18:57:00* Test Item Value Reference Range Interpretation Comments Anion Gap (test code = 46698-6) 22.0 8-16 H [facility] HospitalBlood Urea Zipsatwn1345-26-48 18:57:00* Test Item Value Reference Range Interpretation Comments Blood Urea Nitrogen (test code = 3094-0) 10 7-26 [facility] HospitalCreatinine2019-12-08 18:57:00* Test Item Value Reference Range Interpretation Comments Creatinine (test code = 2160-0) 0.93 0.72-1.25 [facility] HospitalBUN/Creatinine Qijdn1386-82-24 18:57:00* Test Item Value Reference Range Interpretation Comments BUN/Creatinine Ratio (test code = 3097-3) 11 6-25 [facility] HospitalEstimat Glomerular Filtration Rate 2019-05-01 18:57:00* Test Item Value Reference Range Interpretation Comments Estimat Glomerular Filtration Rate (test code = 723390179) > 60 >60 Ranges were taken from the National Kidney Disease Education Program and the Count includes the [facility] Kidney Foundation literature.Reference ranges:60 or greater: Kbfzco50-32 ( for 3 consecutive months): Chronic kidney disease 15 or less: Kidney failureMethodist Children's HospitalGlucose Ofhcv6246-28-51 18:57:00* Test Item Value Reference Range Interpretation Comments Glucose Level (test code = KTL9965) 123 74-118 H [facility] HospitalCalcium Ppdif5441-27-04 18:57:00* Test Item Value Reference Range Interpretation Comments Calcium Level (test code = 90070-0) 10.0 8.4-10.2 [facility] HospitalTotal Gfwssozvh5869-89-66 18:57:00* Test Item Value Reference Range Interpretation Comments Total Bilirubin (test code = 1975-2) 1.5 0.2-1.2 H [facility] HospitalAspartate Amino Transf (AST/SGOT) 2019-05-01 18:57:00* Test Item Value Reference Range Interpretation Comments Aspartate Amino Transf (AST/SGOT) (test code = Aspartate Amino Transf (AST/SGOT)) 16 5-34 [facility] HospitalAlanine Aminotransferase (ALT/SGPT) 2019-05-01 18:57:00* Test Item Value Reference Range Interpretation Comments Alanine Aminotransferase (ALT/SGPT) (test code = 1742-6) 19 0-55 [facility] HospitalTotal Auojmyv3315-38-82 18:57:00* Test Item Value Reference Range Interpretation Comments Total Protein (test code = 2885-2) 7.3 6.5-8.1 [facility] HospitalAlbumin2019-12-08 18:57:00* Test Item Value Reference Range Interpretation Comments Albumin (test code = 1751-7) 4.9 3.5-5.0 [facility] HospitalGlobulin2019-12-08 18:57:00* Test Item Value Reference Range Interpretation Comments Globulin (test code = 71161-3) 2.4 2.3-3.5 [facility] HospitalAlbumin/Globulin Mesae1787-82-19 18:57:00 * Test Item Value Reference Range Interpretation Comments Albumin/Globulin Ratio (test code = 1759-0) 2.0 0.8-2.0 [facility] HospitalAlkaline Jtlfcrbyrkq2824-11-90 18:57:00* Test Item Value Reference Range Interpretation Comments Alkaline Phosphatase (test code = 6768-6) 78 40-150 [facility] HospitalUrine Rhvsu3251-88-03 18:56:00* Test Item Value Reference Range Interpretation Comments Urine Color (test code = 5778-6) YELLOW YELLOW [facility] HospitalUrine Smoukoj1298-84-56 18:56:00* Test Item Value Reference Range Interpretation Comments Urine Clarity (test code = 09419-0) HAZY CLEAR [facility] HospitalUrine Specific Qxkmqkn4332-58-90 18:56:00 * Test Item Value Reference Range Interpretation Comments Urine Specific [place] (test code = 5811-5) 1.010 1.010-1.02 5 [facility] [facility] yB6297-03-08 18:56:00* Test Item Value Reference Range Interpretation Comments Urine pH (test code = 67358-9) 8 5-7 [facility] Leukocyte Lqprpxej6241-99-10 18:56:00* Test Item Value Reference Range Interpretation Comments Urine Leukocyte Esterase (test code = 5799-2) NEGATIVE NEGATIVE [facility] [place]w5683-88-48 18:56:00* Test Item Value Reference Range Interpretation Comments Urine Nitrite (test code = 43503-6) NEGATIVE NEGATIVE [facility] Ovdmhrm7700-84-30 18:56:00* Test Item Value Reference Range Interpretation Comments Urine Protein (test code = 5804-0) TRACE NEGATIVE H [facility] Glucose (UA)2019-05-01 18:56:00* Test Item Value Reference Range Interpretation Comments Urine Glucose (UA) (test code = 2349-9) NEGATIVE NEGATIVE [facility] Dicuvqw8098-20-70 18:56:00* Test Item Value Reference Range Interpretation Comments Urine Ketones (test code = 31155-8) 2+ NEGATIVE H [facility] Opiates Chyhgy8193-61-78 18:56:00* Test Item Value Reference Range Interpretation Comments Urine Opiates Screen (test code = 83616-1) NEGATIVE NEGATIVE ALL TESTS PERFORMED MANUALLY ON BIlprospekt TOX/SEE TESTMethodist Children's HospitalUrine Barbiturates Ufxjod9716-31-19 18:56:00* Test Item Value Reference Range Interpretation Comments Urine Barbiturates Screen (test code = 892601705) NEGATIVE NEGA TIVE [facility] Phencyclidine Fgrgwm5763-82-54 18:56:00* Test Item Value Reference Range Interpretation Comments Urine Phencyclidine Screen (test code = 74594-6) NEGATIVE NEGAT SIMI [facility] Amphetamines Yyeeru5271-67-06 18:56:00* Test Item Value Reference Range Interpretation Comments Urine Amphetamines Screen (test code = 02528-7) NEGATIVE NEGATI VE [facility] Methamphetamines Wkpycw5562-49-85 18:56:00* Test Item Value Reference Range Interpretation Comments Urine Methamphetamines Screen (test code = Urine Metha mphetamines Screen) NEGATIVE NEGATIVE [facility] Benzodiazepines Pbjjfl0609-67-61 18:56:00* Test Item Value Reference Range Interpretation Comments Urine Benzodiazepines Screen (test code = 43932-5) NEGATIVE NEG ATIVE [facility] Cocaine Pwjuqn1072-49-62 18:56:00* Test Item Value Reference Range Interpretation Comments Urine Cocaine Screen (test code = 3398-5) NEGATIVE NEGATIVE [facility] Cannabinoids Xuvsvh8262-97-43 18:56:00* Test Item Value Reference Range Interpretation Comments Urine Cannabinoids Screen (test code = 09168-2) NEGATIVE NEGATI VE THESE RESULTS ARE FOR MEDICAL TREATMENT ONLYTHIS REPORT CONTAINS UNCONFIR MED SCREENING RESULTS*POSITIVE RESULTS WILL BE CONFIRMED BY REFERENCE LAB UPON R EQUEST CUT-OFFDRUG CLASS CONCENTRATION ng/mLAmphetamines 1000Methamphetamines 1000Cocaine 300Opiate 300Phencyc lidine 25Cannabinoid 50Barbiturates 300Benzodiazepine 300Methadone 300[facility] Methadone Dbkgyc5064-14-23 18:56:00* Test Item Value Reference Range Interpretation Comments Urine Methadone Screen (test code = 27686-0) NEGATIVE NEGATIVE THESE RESULTS ARE FOR MEDICAL TREATMENT ONLYTHIS REPORT CONTAINS UNCONFIR MED SCREENING RESULTS*POSITIVE RESULTS WILL BE CONFIRMED BY REFERENCE LAB UPON R EQUEST CUT-OFFDRUG CLASS CONCENTRATION ng/mLAmphetamines 1000Methamphetamines 1000Cocaine Metabolite 300Opiate 300Phencyc lidine 25Cannabinoid 50Barbiturates 300Benzodiazepine 300Methadone 300[facility] Xgwsstgydddr3500-09-54 18:56:00* Test Item Value Reference Range Interpretation Comments Urine Urobilinogen (test code = 70251-0) 0.2 0.2-1 [facility] Jnwjxcnaf4333-33-78 18:56:00* Test Item Value Reference Range Interpretation Comments Urine Bilirubin (test code = 1978-6) NEGATIVE NEGATIVE [facility] Ohzac1381-69-82 18:56:00* Test Item Value Reference Range Interpretation Comments Urine Blood (test code = 78425-7) NEGATIVE NEGATIVE [facility] UTP0667-37-22 18:56:00* Test Item Value Reference Range Interpretation Comments Urine WBC (test code = 5821-4) 0-5 0-5 [facility] [id number] 18:56:00* Test Item Value Reference Range Interpretation Comments Urine RBC (test code = 58441-6) 0-5 0-5 [facility] Jwgytqba9039-31-20 18:56:00* Test Item Value Reference Range Interpretation Comments Urine Bacteria (test code = 16783-7) FEW NONE [facility] Epithelial Ahaep1369-42-33 18:56:00 * Test Item Value Reference Range Interpretation Comments Urine Epithelial Cells (test code = 75213-3) FEW NONE [facility] HospitalWhite Blood Jauvw5989-25-76 18:46:00* Test Item Value Reference Range Interpretation Comments White Blood Count (test code = 6690-2) 9.74 4.8-10.8 [facility] HospitalRed Blood Addvt1956-45-79 18:46:00* Test Item Value Reference Range Interpretation Comments Red Blood Count (test code = 789-8) 5.18 4.3-5.7 [facility] HospitalHemoglobin2019-12-08 18:46:00* Test Item Value Reference Range Interpretation Comments Hemoglobin (test code = 53168-2) 16.3 14.0-18.0 [facility] HospitalHematocrit2019-12-08 18:46:00* Test Item Value Reference Range Interpretation Comments Hematocrit (test code = 4544-3) 43.2 38.2-49.6 [facility] HospitalMean Corpuscular Rqppmm2192-22-45 18:46:00* Test Item Value Reference Range Interpretation Comments Mean Corpuscular Volume (test code = 787-2) 83.4 81-99 [facility] HospitalMean Corpuscular Xveoodzlmj9469-21-95 18:46:00* Test Item Value Reference Range Interpretation Comments Mean Corpuscular Hemoglobin (test code = 785-6) 31.5 28-32 [facility] HospitalMean Corpuscular Hemoglobin Concent 2019-05-01 18:46:00* Test Item Value Reference Range Interpretation Comments Mean Corpuscular Hemoglobin Concent (test code = 786-4) 37.7 31-35 H [facility] HospitalRed Cell Distribution Lwbae4578-12-93 18:46:00* Test Item Value Reference Range Interpretation Comments Red Cell Distribution Width (test code = 52078-5) 11.3 11.7 -14.4 L [facility] HospitalPlatelet Vmpey2191-51-77 18:46:00* Test Item Value Reference Range Interpretation Comments Platelet Count (test code = 777-3) 243 140-360 [facility] HospitalNeutrophils (%) (Auto)2019-05-01 18:46:00 * Test Item Value Reference Range Interpretation Comments Neutrophils (%) (Auto) (test code = 80965-3) 81.4 38.7-80.0 H [facility] HospitalLymphocytes (%) (Auto)2019-05-01 18:46:00 * Test Item Value Reference Range Interpretation Comments Lymphocytes (%) (Auto) (test code = 736-9) 8.9 18.0-39.1 L [facility] HospitalMonocytes (%) (Auto)2019-05-01 18:46:00* Test Item Value Reference Range Interpretation Comments Monocytes (%) (Auto) (test code = 5905-5) 8.4 4.4-11.3 [facility] HospitalEosinophils (%) (Auto)2019-05-01 18:46:00 * Test Item Value Reference Range Interpretation Comments Eosinophils (%) (Auto) (test code = 713-8) 0.3 0.0-6.0 [facility] HospitalBasophils (%) (Auto)2019-05-01 18:46:00* Test Item Value Reference Range Interpretation Comments Basophils (%) (Auto) (test code = 706-2) 0.5 0.0-1.0 [facility] HospitalIM GRANULOCYTES %2019-05-01 18:46:00* Test Item Value Reference Range Interpretation Comments IM GRANULOCYTES % (test code = IM GRANULOCYTES %) 0.5 0.0- 1.0 [facility] HospitalNeutrophils # (Auto)2019-05-01 18:46:00* Test Item Value Reference Range Interpretation Comments Neutrophils # (Auto) (test code = 751-8) 7.9 2.1-6.9 H [facility] HospitalLymphocytes # (Auto)2019-05-01 18:46:00* Test Item Value Reference Range Interpretation Comments Lymphocytes # (Auto) (test code = 11467-4) 0.9 1.0-3.2 L [facility] HospitalMonocytes # (Auto)2019-05-01 18:46:00* Test Item Value Reference Range Interpretation Comments Monocytes # (Auto) (test code = 742-7) 0.8 0.2-0.8 [facility] HospitalEosinophils # (Auto)2019-05-01 18:46:00* Test Item Value Reference Range Interpretation Comments Eosinophils # (Auto) (test code = 711-2) 0.0 0.0-0.4 [facility] HospitalBasophils # (Auto)2019-05-01 18:46:00* Test Item Value Reference Range Interpretation Comments Basophils # (Auto) (test code = 704-7) 0.1 0.0-0.1 [facility] HospitalAbsolute Immature Granulocyte (auto 2019-05-01 18:46:00* Test Item Value Reference Range Interpretation Comments Absolute Immature Granulocyte (auto (inocencio t code = Absolute Immature Granulocyte (auto) 0.05 0-0.1 [facility] Cobcs8152-97-61 06:27:00* Test Item Value Reference Range Interpretation Comments Sodium Level (test code = 2951-2) 139 136-145 [facility] HospitalPotassium Xtyut5779-24-73 06:27:00* Test Item Value Reference Range Interpretation Comments Potassium Level (test code = 2823-3) 3.5 3.5-5.1 [facility] HospitalChloride Uzopp3300-77-95 06:27:00* Test Item Value Reference Range Interpretation Comments Chloride Level (test code = 2075-0) 108 98-107 H [facility] HospitalCarbon Dioxide Dprwy1046-50-53 06:27:00* Test Item Value Reference Range Interpretation Comments Carbon Dioxide Level (test code = 2028-9) 20 22-29 L [facility] HospitalAnion Qws1335-29-56 06:27:00* Test Item Value Reference Range Interpretation Comments Anion Gap (test code = 03848-8) 14.5 8-16 [facility] HospitalBlood Urea Izuhvzno4302-82-33 06:27:00* Test Item Value Reference Range Interpretation Comments Blood Urea Nitrogen (test code = 3094-0) 8 7-26 [facility] HospitalCreatinine2019-12-05 06:27:00* Test Item Value Reference Range Interpretation Comments Creatinine (test code = 2160-0) 0.79 0.72-1.25 [facility] HospitalBUN/Creatinine Qbglf1155-57-39 06:27:00* Test Item Value Reference Range Interpretation Comments BUN/Creatinine Ratio (test code = 3097-3) 10 6-25 [facility] HospitalEstimat Glomerular Filtration Rate 2019-04-28 06:27:00* Test Item Value Reference Range Interpretation Comments Estimat Glomerular Filtration Rate (test code = 817337507) > 60 >60 Ranges were taken from the National Kidney Disease Education Program and the [facility], [facility] [employer] literature.Reference ranges:60 or greater: Wppvft67-95 ( for 3 consecutive months): Chronic kidney disease 15 or less: Kidney failureMethodist Children's HospitalGlucose Apszr7559-85-10 06:27:00* Test Item Value Reference Range Interpretation Comments Glucose Level (test code = COM4585) 101 74-118 [facility] HospitalCalcium Hdfvn2543-16-66 06:27:00* Test Item Value Reference Range Interpretation Comments Calcium Level (test code = 28813-0) 9.0 8.4-10.2 [facility] HospitalTotal Vxxyhagxh0107-21-21 06:27:00* Test Item Value Reference Range Interpretation Comments Total Bilirubin (test code = 1975-2) 1.4 0.2-1.2 H [facility] HospitalAspartate Amino Transf (AST/SGOT) 2019-04-28 06:27:00* Test Item Value Reference Range Interpretation Comments Aspartate Amino Transf (AST/SGOT) (test code = Aspartate Amino Transf (AST/SGOT)) 20 5-34 [facility] HospitalAlanine Aminotransferase (ALT/SGPT) 2019-04-28 06:27:00* Test Item Value Reference Range Interpretation Comments Alanine Aminotransferase (ALT/SGPT) (test code = 1742-6) 18 0-55 [facility] HospitalTotal Ijvopkt5674-52-28 06:27:00* Test Item Value Reference Range Interpretation Comments Total Protein (test code = 2885-2) 6.3 6.5-8.1 L [facility] HospitalAlbumin2019-12-05 06:27:00* Test Item Value Reference Range Interpretation Comments Albumin (test code = 1751-7) 4.1 3.5-5.0 [facility] HospitalGlobulin2019-12-05 06:27:00* Test Item Value Reference Range Interpretation Comments Globulin (test code = 43144-9) 2.2 2.3-3.5 L [facility] HospitalAlbumin/Globulin Rlzoi4946-37-93 06:27:00 * Test Item Value Reference Range Interpretation Comments Albumin/Globulin Ratio (test code = 1759-0) 1.9 0.8-2.0 [facility] HospitalAlkaline Hnvuptndztw5862-54-49 06:27:00* Test Item Value Reference Range Interpretation Comments Alkaline Phosphatase (test code = 6768-6) 69 40-150 [facility] HospitalLipase2019-12-05 06:27:00* Test Item Value Reference Range Interpretation Comments Lipase (test code = 3040-3) 7 8-78 L [facility] HospitalLipase2019-12-05 06:27:00* Test Item Value Reference Range Interpretation Comments Lipase (test code = 3040-3) 7 8-78 L [facility] HospitalWhite Blood Rbhie5793-78-25 06:07:00* Test Item Value Reference Range Interpretation Comments White Blood Count (test code = 6690-2) 10.19 4.8-10.8 [facility] HospitalRed Blood Jlelv1515-70-75 06:07:00* Test Item Value Reference Range Interpretation Comments Red Blood Count (test code = 789-8) 4.50 4.3-5.7 [facility] HospitalHemoglobin2019-12-05 06:07:00* Test Item Value Reference Range Interpretation Comments Hemoglobin (test code = 86675-0) 14.4 14.0-18.0 [facility] HospitalHematocrit2019-12-05 06:07:00* Test Item Value Reference Range Interpretation Comments Hematocrit (test code = 4544-3) 38.1 38.2-49.6 L [facility] HospitalMean Corpuscular Qsucpw6141-37-59 06:07:00* Test Item Value Reference Range Interpretation Comments Mean Corpuscular Volume (test code = 787-2) 84.7 81-99 [facility] HospitalMean Corpuscular Sbtuexpuyd9956-51-51 06:07:00* Test Item Value Reference Range Interpretation Comments Mean Corpuscular Hemoglobin (test code = 785-6) 32.0 28-32 [facility] HospitalMean Corpuscular Hemoglobin Concent 2019-04-28 06:07:00* Test Item Value Reference Range Interpretation Comments Mean Corpuscular Hemoglobin Concent (test code = 786-4) 37.8 31-35 H [facility] HospitalRed Cell Distribution Mblih5504-80-51 06:07:00* Test Item Value Reference Range Interpretation Comments Red Cell Distribution Width (test code = 89754-1) 11.5 11.7 -14.4 L [facility] HospitalPlatelet Eapdj4728-62-35 06:07:00* Test Item Value Reference Range Interpretation Comments Platelet Count (test code = 777-3) 192 140-360 [facility] HospitalNeutrophils (%) (Auto)2019-04-28 06:07:00 * Test Item Value Reference Range Interpretation Comments Neutrophils (%) (Auto) (test code = 10505-0) 68.1 38.7-80.0 [facility] HospitalLymphocytes (%) (Auto)2019-04-28 06:07:00 * Test Item Value Reference Range Interpretation Comments Lymphocytes (%) (Auto) (test code = 736-9) 20.2 18.0-39.1 [facility] HospitalMonocytes (%) (Auto)2019-04-28 06:07:00* Test Item Value Reference Range Interpretation Comments Monocytes (%) (Auto) (test code = 5905-5) 10.0 4.4-11.3 [facility] HospitalEosinophils (%) (Auto)2019-04-28 06:07:00 * Test Item Value Reference Range Interpretation Comments Eosinophils (%) (Auto) (test code = 713-8) 1.0 0.0-6.0 [facility] HospitalBasophils (%) (Auto)2019-04-28 06:07:00* Test Item Value Reference Range Interpretation Comments Basophils (%) (Auto) (test code = 706-2) 0.4 0.0-1.0 [facility] HospitalIM GRANULOCYTES %2019-04-28 06:07:00* Test Item Value Reference Range Interpretation Comments IM GRANULOCYTES % (test code = IM GRANULOCYTES %) 0.3 0.0- 1.0 [facility] HospitalNeutrophils # (Auto)2019-04-28 06:07:00* Test Item Value Reference Range Interpretation Comments Neutrophils # (Auto) (test code = 751-8) 6.9 2.1-6.9 [facility] HospitalLymphocytes # (Auto)2019-04-28 06:07:00* Test Item Value Reference Range Interpretation Comments Lymphocytes # (Auto) (test code = 08132-1) 2.1 1.0-3.2 [facility] HospitalMonocytes # (Auto)2019-04-28 06:07:00* Test Item Value Reference Range Interpretation Comments Monocytes # (Auto) (test code = 742-7) 1.0 0.2-0.8 H [facility] HospitalEosinophils # (Auto)2019-04-28 06:07:00* Test Item Value Reference Range Interpretation Comments Eosinophils # (Auto) (test code = 711-2) 0.1 0.0-0.4 [facility] HospitalBasophils # (Auto)2019-04-28 06:07:00* Test Item Value Reference Range Interpretation Comments Basophils # (Auto) (test code = 704-7) 0.0 0.0-0.1 [facility] HospitalAbsolute Immature Granulocyte (auto 2019-04-28 06:07:00* Test Item Value Reference Range Interpretation Comments Absolute Immature Granulocyte (auto (inocencio t code = Absolute Immature Granulocyte (auto) 0.03 0-0.1 [facility] Centererum or plasma lipase measurement (enzymatic activity/volume)2019-04-28 04:50:00* Test Item Value Reference Range Interpretation Comments Lipase (test code = 3040-3) [facility] Centererum or plasma lipase measurement (enzymatic activity/volume)2019-04-28 04:50:00* Test Item Value Reference Range Interpretation Comments Lipase (test code = 3040-3) [facility]ererum or plasma lipase measurement (enzymatic activity/volume)2019-04-28 04:50:00* Test Item Value Reference Range Interpretation Comments Lipase (test code = 3040-3) [facility] Centererum or plasma lipase measurement (enzymatic activity/volume)2019-04-28 04:50:00* Test Item Value Reference Range Interpretation Comments Lipase (test code = 3040-3) [facility] HospitalMagnesium Oxqep7504-00-00 18:45:00* Test Item Value Reference Range Interpretation Comments Magnesium Level (test code = 25186-9) 1.9 1.3-2.1 [facility] HospitalMagnesium Frfdn2857-22-20 18:45:00* Test Item Value Reference Range Interpretation Comments Magnesium Level (test code = 78005-3) 1.9 1.3-2.1 [facility] HospitalCT [facility]BDOMEN[facility]PELVIS N9739-28-83 16:40:00 [facility] [address] [place] [address] Patient Name: JING GARZA MR #: [id number] : [birth year] Age/Sex: 19/M Req #: [id number] Adm Physician: Ordered by: KEMAL BLUM [employer]ER Report #: [id number] Location: ER Room/Bed: Procedure: [id number] C T/CT ABDOMEN/PELVIS W Exam Date: 04/27/19 Exam Time: 1610 REPORT STATUS: Signed C T of the abdomen and pelvis, with contrast, [...] Lopez on 04/27/2019 4:46 PM Dictated By: KEMAL LOPEZ MD Electronic ally Signed By: KEMAL LOPEZ MD on 04/27/191645 Transcribed By: SUMAYA on 1645 COPY TO: KEMAL BLUM NP Urine [id number] 15:17:00* Test Item Value Reference Range Interpretation Comments Urine WBC (test code = 5821-4) 6-10 0-5 H [facility] IGG8419-11-33 15:17:00* Test Item Value Reference Range Interpretation Comments Urine RBC (test code = 26997-2) 0-5 0-5 [facility] Jewpokpb5385-55-92 15:17:00* Test Item Value Reference Range Interpretation Comments Urine Bacteria (test code = 50451-2) MODERATE NONE [facility] Epithelial Vgsnk6880-42-80 15:17:00 * Test Item Value Reference Range Interpretation Comments Urine Epithelial Cells (test code = 55923-5) MODERATE NONE [facility] Amorphous Hbebmjrl8770-00-16 15:17:00* Test Item Value Reference Range Interpretation Comments Urine Amorphous Sediment (test code = 8246-1) MODERATE FEW [facility] Txams7312-74-77 15:17:00* Test Item Value Reference Range Interpretation Comments Urine Mucus (test code = 8247-9) MANY RARE H [facility] Amorphous Rwxopxea1524-79-13 15:17:00* Test Item Value Reference Range Interpretation Comments Urine Amorphous Sediment (test code = 8246-1) MODERATE FEW [facility] Nvqwg2254-75-80 15:17:00* Test Item Value Reference Range Interpretation Comments Urine Mucus (test code = 8247-9) MANY RARE [facility] Syped1608-09-77 15:15:00* Test Item Value Reference Range Interpretation Comments Amylase Level (test code = 1798-8) 48 25-125 [facility] HospitalAmylase Gwekv7381-69-95 15:15:00* Test Item Value Reference Range Interpretation Comments Amylase Level (test code = 1798-8) 48 25-125 [facility] Opiates Gjyjyq6752-02-07 15:01:00* Test Item Value Reference Range Interpretation Comments Urine Opiates Screen (test code = 71345-1) NEGATIVE NEGATIVE ALL TESTS PERFORMED MANUALLY ON BIlprospekt TOX/SEE TESTUnited [facility] Healthcare System Barbiturates Jzbqgl6856-05-34 15:01:00* Test Item Value Reference Range Interpretation Comments Urine Barbiturates Screen (test code = 788811069) NEGATIVE NEGA TIVE [facility] HospitalU[facility] Phencyclidine Oitiqx3420-55-59 15:01:00* Test Item Value Reference Range Interpretation Comments Urine Phencyclidine Screen (test code = 76267-4) NEGATIVE NEGAT SIMI [facility] HospitalUrine Amphetamines Fruxko3075-83-26 15:01:00* Test Item Value Reference Range Interpretation Comments Urine Amphetamines Screen (test code = 89142-5) NEGATIVE NEGATI VE [facility] HospitalUrine Methamphetamines Gtioqw1756-60-98 15:01:00* Test Item Value Reference Range Interpretation Comments Urine Methamphetamines Screen (test code = Urine Metha mphetamines Screen) NEGATIVE NEGATIVE [facility] HospitalU[facility] Benzodiazepines Badtpk5627-69-07 15:01:00* Test Item Value Reference Range Interpretation Comments Urine Benzodiazepines Screen (test code = 26987-4) NEGATIVE NEG ATIVE [facility] HospitalU[facility] Cocaine Kjonrw8581-35-95 15:01:00* Test Item Value Reference Range Interpretation Comments Urine Cocaine Screen (test code = 3398-5) NEGATIVE NEGATIVE [facility] HospitalUrine Cannabinoids Prmyks2144-43-92 15:01:00* Test Item Value Reference Range Interpretation Comments Urine Cannabinoids Screen (test code = 14190-3) POSITIVE NEGATI VE H THESE RESULTS ARE FOR MEDICAL TREATMENT ONLYTHIS REPORT CONTAINS UNCONFIR MED SCREENING RESULTS*POSITIVE RESULTS WILL BE CONFIRMED BY REFERENCE LAB UPON R EQUEST CUT-OFFDRUG CLASS CONCENTRATION ng/mLAmphetamines 1000Methamphetamines 1000Cocaine 300Opiate 300Phencyc lidine 25Cannabinoid 50Barbiturates 300Benzodiazepine 300Methadone 300 This test p rovides only a screen. Positive results should be repeated by a confirmatory inocencio t.[facility] HospitalUrine Methadone Xuaztv9902-73-82 15:01:00* Test Item Value Reference Range Interpretation Comments Urine Methadone Screen (test code = 52240-9) NEGATIVE NEGATIVE THESE RESULTS ARE FOR MEDICAL TREATMENT ONLYTHIS REPORT CONTAINS UNCONFIR MED SCREENING RESULTS*POSITIVE RESULTS WILL BE CONFIRMED BY REFERENCE LAB UPON R EQUEST CUT-OFFDRUG CLASS CONCENTRATION ng/mLAmphetamines 1000Methamphetamines 1000Cocaine Metabolite 300Opiate 300Phencyc lidine 25Cannabinoid 50Barbiturates 300Benzodiazepine 300Methadone 300[facility] Zsynj5562-03-64 14:57:00* Test Item Value Reference Range Interpretation Comments Urine Color (test code = 5778-6) STRAW YELLOW [facility] HospitalU[facility] Nihpqix1832-95-40 14:57:00* Test Item Value Reference Range Interpretation Comments Urine Clarity (test code = 21468-8) SL CLOUDY CLEAR H [facility] HospitalUrine Specific Mumdcop3598-33-49 14:57:00 * Test Item Value Reference Range Interpretation Comments Urine Specific [place] (test code = 5811-5) 1.025 1.010-1.02 5 [facility] HospitalU[facility] [id number] 14:57:00* Test Item Value Reference Range Interpretation Comments Urine pH (test code = 27753-6) 6 5-7 [facility] Hospital[facility] Leukocyte Eqkuuznv2519-03-79 14:57:00* Test Item Value Reference Range Interpretation Comments Urine Leukocyte Esterase (test code = 69275-6) TRACE NEGATIV E H [facility] HospitalUrine Eayrkpy7057-08-12 14:57:00* Test Item Value Reference Range Interpretation Comments Urine Nitrite (test code = 60568-4) NEGATIVE NEGATIVE [facility] HospitalU[facility] Idrjhql0832-34-83 14:57:00* Test Item Value Reference Range Interpretation Comments Urine Protein (test code = 64376-3) 1+ NEGATIVE H [facility] HospitalUrine Glucose (UA)2019-04-27 14:57:00* Test Item Value Reference Range Interpretation Comments Urine Glucose (UA) (test code = 82824-8) NEGATIVE NEGATIVE [facility] HospitalUrine Jnjglba0204-61-47 14:57:00* Test Item Value Reference Range Interpretation Comments Urine Ketones (test code = 83404-2) 2+ NEGATIVE H [facility] Vybgujaytlpc2404-08-45 14:57:00* Test Item Value Reference Range Interpretation Comments Urine Urobilinogen (test code = 94581-1) 1 0.2-1 [facility] Athuwusuh7186-79-64 14:57:00* Test Item Value Reference Range Interpretation Comments Urine Bilirubin (test code = 1977-8) MODERATE NEGATIVE [facility] Ujtec2094-23-62 14:57:00* Test Item Value Reference Range Interpretation Comments Urine Blood (test code = 99829-2) TRACE NEGATIVE [facility] HospitalAmorphous sediment detection in urine sediment by light ldxrzgjjcd8912-09-50 13:34:00* Test Item Value Reference Range Interpretation Comments Urine Amorphous Sediment (test code = 8246-1) MODERATE FEW [facility] plasma amylase measurement (enzymatic activity/volume)2019-04-27 13:34:00* Test Item Value Reference Range Interpretation Comments Amylase Level (test code = 1798-8) 48 25-125 [facility] HospitalAmorphous sediment detection in urine sediment by light fjevxtjnzk5365-91-06 13:34:00* Test Item Value Reference Range Interpretation Comments Urine Amorphous Sediment (test code = 8246-1) MODERATE FEW [facility] or plasma amylase measurement (enzymatic activity/volume)2019-04-27 13:34:00* Test Item Value Reference Range Interpretation Comments Amylase Level (test code = 1798-8) 48 25-125 [facility] HospitalAmorphous sediment detection in urine sediment by light eztnaxzgho5393-30-78 13:34:00* Test Item Value Reference Range Interpretation Comments Urine Amorphous Sediment (test code = 8246-1) MODERATE FEW [facility] plasma amylase measurement (enzymatic activity/volume)2019-04-27 13:34:00* Test Item Value Reference Range Interpretation Comments Amylase Level (test code = 1798-8) 48 25-125 [facility] HospitalAmorphous sediment detection in urine sediment by light rdqfhndice3409-72-61 13:34:00* Test Item Value Reference Range Interpretation Comments Urine Amorphous Sediment (test code = 8246-1) MODERATE FEW [facility] plasma amylase measurement (enzymatic activity/volume)2019-04-27 13:34:00* Test Item Value Reference Range Interpretation Comments Amylase Level (test code = 1798-8) 48 25-125 [facility] Opiates Tgbokh6286-76-33 10:09:00* Test Item Value Reference Range Interpretation Comments Urine Opiates Screen (test code = 80215-5) NEGATIVE NEGATIVE ALL TESTS PERFORMED MANUALLY ON BIlprospekt TOX/SEE TESTMethodist Children's HospitalUrine Barbiturates Hnmphw3338-33-54 10:09:00* Test Item Value Reference Range Interpretation Comments Urine Barbiturates Screen (test code = 820398104) NEGATIVE NEGA TIVE [facility] Phencyclidine Qpwotz6761-37-37 10:09:00* Test Item Value Reference Range Interpretation Comments Urine Phencyclidine Screen (test code = 37554-8) NEGATIVE NEGAT SIMI [facility] Amphetamines Ktwgzv8514-67-61 10:09:00* Test Item Value Reference Range Interpretation Comments Urine Amphetamines Screen (test code = 24454-1) NEGATIVE NEGATI VE [facility] Methamphetamines Kojccz3979-20-63 10:09:00* Test Item Value Reference Range Interpretation Comments Urine Methamphetamines Screen (test code = Urine Metha mphetamines Screen) NEGATIVE NEGATIVE [facility] Benzodiazepines Uxneaq1265-31-77 10:09:00* Test Item Value Reference Range Interpretation Comments Urine Benzodiazepines Screen (test code = 36649-7) NEGATIVE NEG ATIVE [facility] Cocaine Aegdau9963-33-04 10:09:00* Test Item Value Reference Range Interpretation Comments Urine Cocaine Screen (test code = 3398-5) NEGATIVE NEGATIVE [facility] Cannabinoids Kyfcva6137-85-03 10:09:00* Test Item Value Reference Range Interpretation Comments Urine Cannabinoids Screen (test code = 69139-1) POSITIVE NEGATI VE H THESE RESULTS ARE FOR MEDICAL TREATMENT ONLYTHIS REPORT CONTAINS UNCONFIR MED SCREENING RESULTS*POSITIVE RESULTS WILL BE CONFIRMED BY REFERENCE LAB UPON R EQUEST CUT-OFFDRUG CLASS CONCENTRATION ng/mLAmphetamines 1000Methamphetamines 1000Cocaine 300Opiate 300Phencyc lidine 25Cannabinoid 50Barbiturates 300Benzodiazepine 300Methadone 300 This test p rovides only a screen. Positive results should be repeated by a confirmatory inocencio t.[facility] Methadone Jwkbiq6559-97-22 10:09:00* Test Item Value Reference Range Interpretation Comments Urine Methadone Screen (test code = 99526-4) NEGATIVE NEGATIVE THESE RESULTS ARE FOR MEDICAL TREATMENT ONLYTHIS REPORT CONTAINS UNCONFIR MED SCREENING RESULTS*POSITIVE RESULTS WILL BE CONFIRMED BY REFERENCE LAB UPON R EQUEST CUT-OFFDRUG CLASS CONCENTRATION ng/mLAmphetamines 1000Methamphetamines 1000Cocaine Metabolite 300Opiate 300Phencyc lidine 25Cannabinoid 50Barbiturates 300Benzodiazepine 300Methadone 300[facility] HDR4441-51-77 10:08:00* Test Item Value Reference Range Interpretation Comments Urine WBC (test code = 5821-4) 0-5 0-5 [facility] ISY7753-00-97 10:08:00* Test Item Value Reference Range Interpretation Comments Urine RBC (test code = 98737-1) NONE 0-5 [facility] Evqypckn6569-46-13 10:08:00* Test Item Value Reference Range Interpretation Comments Urine Bacteria (test code = 11657-6) FEW NONE [facility] Epithelial Khptm5509-95-79 10:08:00 * Test Item Value Reference Range Interpretation Comments Urine Epithelial Cells (test code = 57536-6) FEW NONE [facility] Manxx3438-46-17 10:08:00* Test Item Value Reference Range Interpretation Comments Urine Mucus (test code = 8247-9) FEW RARE H [facility] Vpuku5681-32-86 09:54:00* Test Item Value Reference Range Interpretation Comments Urine Color (test code = 5778-6) YELLOW YELLOW [facility] Jhnnvtp3442-32-26 09:54:00* Test Item Value Reference Range Interpretation Comments Urine Clarity (test code = 84615-4) CLEAR CLEAR [facility] Specific Fbjdatb1203-84-31 09:54:00 * Test Item Value Reference Range Interpretation Comments Urine Specific [place] (test code = 5811-5) 1.010 1.010-1.02 5 [facility] nT7280-63-23 09:54:00* Test Item Value Reference Range Interpretation Comments Urine pH (test code = 47915-0) 7 5-7 [facility] Leukocyte Pwqsehyg7159-58-48 09:54:00* Test Item Value Reference Range Interpretation Comments Urine Leukocyte Esterase (test code = 16996-0) NEGATIVE NEGATIV E [facility] Quliddv6427-71-05 09:54:00* Test Item Value Reference Range Interpretation Comments Urine Nitrite (test code = 77637-1) NEGATIVE NEGATIVE [facility] Osivplh9842-82-44 09:54:00* Test Item Value Reference Range Interpretation Comments Urine Protein (test code = 80083-0) 1+ NEGATIVE H [facility] Glucose (UA)2019-01-09 09:54:00* Test Item Value Reference Range Interpretation Comments Urine Glucose (UA) (test code = 88555-3) NEGATIVE NEGATIVE [facility] Hkfantc6826-16-67 09:54:00* Test Item Value Reference Range Interpretation Comments Urine Ketones (test code = 30209-0) 1+ NEGATIVE H [facility] Wbpnmppdkrre6172-41-54 09:54:00* Test Item Value Reference Range Interpretation Comments Urine Urobilinogen (test code = 29863-6) 0.2 0.2-1 [facility] Hpjuddihr7033-17-21 09:54:00* Test Item Value Reference Range Interpretation Comments Urine Bilirubin (test code = 1977-8) NEGATIVE NEGATIVE [facility] Xlcck5387-86-03 09:54:00* Test Item Value Reference Range Interpretation Comments Urine Blood (test code = 02595-5) NEGATIVE NEGATIVE [facility] HospitalCT [facility]BDOMEN/PELVIS Y0241-55-07 09:30:00 [place] [address] Patient Name: JING GARZA MR #: [id number] : [birth year] Age/Sex: 18/M Req #: [id number] Adm Physician: Ordered by: JUAN BIANCHI MD Report #: [id number] Location: ER Room/Bed: Procedure: [id number] C T/CT ABDOMEN/PELVIS W Exam Date: 01/09/19 [...] the patient's pain. Signed b y: Dr. Justice Hart M.D. on 01/09/2019 9:34 AM Dictated By: JUSTICE ORDONEZ MD 3 Transcr ibed By: SUMAYA on 01/09/19933 COPY TO: JUAN BIANCHI MD Sodium Wpcnz4248-79-28 08:30:00* Test Item Value Reference Range Interpretation Comments Sodium Level (test code = 2951-2) 141 136-145 [facility] HospitalPotassium Kxgjv6023-70-42 08:30:00* Test Item Value Reference Range Interpretation Comments Potassium Level (test code = 2823-3) 3.4 3.5-5.1 L [facility] HospitalChloride Oezht4589-29-06 08:30:00* Test Item Value Reference Range Interpretation Comments Chloride Level (test code = 2075-0) 102 98-107 [facility] HospitalCarbon Dioxide Gnrrm4505-81-06 08:30:00* Test Item Value Reference Range Interpretation Comments Carbon Dioxide Level (test code = 2028-9) 26 22-29 [facility] HospitalAnion Rir9627-02-96 08:30:00* Test Item Value Reference Range Interpretation Comments Anion Gap (test code = 57979-6) 16.4 8-16 H [facility] HospitalBlood Urea Ysrdhcya5785-99-07 08:30:00* Test Item Value Reference Range Interpretation Comments Blood Urea Nitrogen (test code = 3094-0) 9 7-26 [facility] HospitalCreatinine2019-08-18 08:30:00* Test Item Value Reference Range Interpretation Comments Creatinine (test code = 2160-0) 0.87 0.72-1.25 [facility] HospitalBUN/Creatinine Dumlb9652-70-53 08:30:00* Test Item Value Reference Range Interpretation Comments BUN/Creatinine Ratio (test code = 3097-3) 10 6-25 [facility] HospitalEstimat Glomerular Filtration Rate 2019-01-09 08:30:00* Test Item Value Reference Range Interpretation Comments Estimat Glomerular Filtration Rate (test code = 247945507) > 60 >60 Ranges were taken from the National Kidney Disease Education Program and the [facility] literature.Reference ranges:60 or greater: Kgbqpw37-61 ( for 3 consecutive months): Chronic kidney disease 15 or less: Kidney failureMethodist Children's HospitalGlucose Mtpso6463-35-75 08:30:00* Test Item Value Reference Range Interpretation Comments Glucose Level (test code = RWI0761) 128 74-118 H [facility] HospitalCalcium Qprsf9157-84-06 08:30:00* Test Item Value Reference Range Interpretation Comments Calcium Level (test code = 72464-6) 10.3 8.4-10.2 H [facility] HospitalTotal Rezkgvgsk4957-52-09 08:30:00* Test Item Value Reference Range Interpretation Comments Total Bilirubin (test code = 1975-2) 0.9 0.2-1.2 [facility] HospitalAspartate Amino Transf (AST/SGOT) 2019-01-09 08:30:00* Test Item Value Reference Range Interpretation Comments Aspartate Amino Transf (AST/SGOT) (test code = Aspartate Amino Transf (AST/SGOT)) 19 5-34 [facility] HospitalAlanine Aminotransferase (ALT/SGPT) 2019-01-09 08:30:00* Test Item Value Reference Range Interpretation Comments Alanine Aminotransferase (ALT/SGPT) (test code = 1742-6) 19 0-55 [facility] HospitalTotal Yawmnum5334-67-80 08:30:00* Test Item Value Reference Range Interpretation Comments Total Protein (test code = 2885-2) 7.3 6.5-8.1 [facility] HospitalAlbumin2019-08-18 08:30:00* Test Item Value Reference Range Interpretation Comments Albumin (test code = 1751-7) 4.9 3.5-5.0 [facility] HospitalGlobulin2019-08-18 08:30:00* Test Item Value Reference Range Interpretation Comments Globulin (test code = 77140-1) 2.4 2.3-3.5 [facility] HospitalAlbumin/Globulin Fradx5872-29-14 08:30:00 * Test Item Value Reference Range Interpretation Comments Albumin/Globulin Ratio (test code = 1759-0) 2.0 0.8-2.0 [facility] HospitalAlkaline Snjskuerzfz0426-85-42 08:30:00* Test Item Value Reference Range Interpretation Comments Alkaline Phosphatase (test code = 6768-6) 97 40-150 [facility] HospitalWhite Blood Yhksa6293-53-61 08:10:00* Test Item Value Reference Range Interpretation Comments White Blood Count (test code = 6690-2) 19.18 4.8-10.8 H [facility] HospitalRed Blood Bssce2440-40-64 08:10:00* Test Item Value Reference Range Interpretation Comments Red Blood Count (test code = 789-8) 5.09 4.3-5.7 [facility] HospitalHemoglobin2019-08-18 08:10:00* Test Item Value Reference Range Interpretation Comments Hemoglobin (test code = 01406-0) 16.4 14.0-18.0 [facility] HospitalHematocrit2019-08-18 08:10:00* Test Item Value Reference Range Interpretation Comments Hematocrit (test code = 4544-3) 43.5 38.2-49.6 [facility] HospitalMean Corpuscular Ijjkqe5463-62-70 08:10:00* Test Item Value Reference Range Interpretation Comments Mean Corpuscular Volume (test code = 787-2) 85.5 81-99 [facility] HospitalMean Corpuscular Ktrikqiiko0694-12-14 08:10:00* Test Item Value Reference Range Interpretation Comments Mean Corpuscular Hemoglobin (test code = 785-6) 32.2 28-32 H [facility] HospitalMean Corpuscular Hemoglobin Concent 2019-01-09 08:10:00* Test Item Value Reference Range Interpretation Comments Mean Corpuscular Hemoglobin Concent (test code = 786-4) 37.7 31-35 H [facility] HospitalRed Cell Distribution Wdgtb9463-04-72 08:10:00* Test Item Value Reference Range Interpretation Comments Red Cell Distribution Width (test code = 43304-8) 11.2 11.7 -14.4 L [facility] HospitalPlatelet Deqeg8943-88-37 08:10:00* Test Item Value Reference Range Interpretation Comments Platelet Count (test code = 777-3) 237 140-360 [facility] HospitalNeutrophils (%) (Auto)2019-01-09 08:10:00 * Test Item Value Reference Range Interpretation Comments Neutrophils (%) (Auto) (test code = 61425-8) 86.0 38.7-80.0 H [facility] HospitalLymphocytes (%) (Auto)2019-01-09 08:10:00 * Test Item Value Reference Range Interpretation Comments Lymphocytes (%) (Auto) (test code = 736-9) 5.9 18.0-39.1 L [facility] HospitalMonocytes (%) (Auto)2019-01-09 08:10:00* Test Item Value Reference Range Interpretation Comments Monocytes (%) (Auto) (test code = 5905-5) 7.0 4.4-11.3 [facility] HospitalEosinophils (%) (Auto)2019-01-09 08:10:00 * Test Item Value Reference Range Interpretation Comments Eosinophils (%) (Auto) (test code = 713-8) 0.3 0.0-6.0 [facility] HospitalBasophils (%) (Auto)2019-01-09 08:10:00* Test Item Value Reference Range Interpretation Comments Basophils (%) (Auto) (test code = 706-2) 0.4 0.0-1.0 [facility] HospitalIM GRANULOCYTES %2019-01-09 08:10:00* Test Item Value Reference Range Interpretation Comments IM GRANULOCYTES % (test code = IM GRANULOCYTES %) 0.4 0.0- 1.0 [facility] HospitalNeutrophils # (Auto)2019-01-09 08:10:00* Test Item Value Reference Range Interpretation Comments Neutrophils # (Auto) (test code = 751-8) 16.5 2.1-6.9 H [facility] HospitalLymphocytes # (Auto)2019-01-09 08:10:00* Test Item Value Reference Range Interpretation Comments Lymphocytes # (Auto) (test code = 56945-7) 1.1 1.0-3.2 [facility] HospitalMonocytes # (Auto)2019-01-09 08:10:00* Test Item Value Reference Range Interpretation Comments Monocytes # (Auto) (test code = 742-7) 1.3 0.2-0.8 H [facility] HospitalEosinophils # (Auto)2019-01-09 08:10:00* Test Item Value Reference Range Interpretation Comments Eosinophils # (Auto) (test code = 711-2) 0.1 0.0-0.4 [facility] HospitalBasophils # (Auto)2019-01-09 08:10:00* Test Item Value Reference Range Interpretation Comments Basophils # (Auto) (test code = 704-7) 0.1 0.0-0.1 [facility] HospitalAbsolute Immature Granulocyte (auto 2019-01-09 08:10:00* Test Item Value Reference Range Interpretation Comments Absolute Immature Granulocyte (auto (inocencio t code = Absolute Immature Granulocyte (auto) 0.08 0-0.1 [facility]
== END 2020-02-17 19:00 | disposition left against medical advice (07) ==
LOC: ER 16:49
DX: R11.2 Nausea with vomiting, unspecified (principal)
CPT/HCPCS: 36600

== ENCOUNTER 2020-06-18 11:29 | Observation (INO) | payer SELFPAY ==
[~2020-06-18] VITALS: Ht 170.2 cm; Wt 54.4 kg
[2020-06-18 12:26] LABS: BASOPHILS # (AUTO) 0.1 (0.0-0.1); BASOPHILS % 0.5 % (0.0-1.0); EOSINOPHILS # (AUTO) 0.1 (0.0-0.4); EOSINOPHILS % 0.6 % (0.0-6.0); HEMOGLOBIN 15.9 g/dL (14.0-18.0); LYMPHOCYTES # (AUTO) 1.4 (1.0-3.2); LYMPHOCYTES % 6.9 % (18.0-39.1); MEAN CORPUSCULAR HEMOGLOBIN 31.6 pg (28-32); MEAN CORPUSCULAR VOLUME 85.5 fL (81-99); MONOCYTES # (AUTO) 1.2 (0.2-0.8); MONOCYTES % 6.3 % (4.4-11.3); NEUTROPHILS # (AUTO) 16.7 (2.1-6.9); NEUTROPHILS % 85.1 % (38.7-80.0); PLATELET COUNT 252 x10e3/uL (140-360); RED BLOOD COUNT 5.03 x10e6/uL (4.3-5.7); RED CELL DISTRIBUTION WIDTH 11.4 % (11.7-14.4)
[2020-06-18 12:49] LABS: ALANINE AMINOTRANSFERASE 14 IU/L (0-55); ALBUMIN 5.1 g/dL (3.5-5.0); ALBUMIN/GLOBULIN RATIO 2.2 (0.8-2.0); ALKALINE PHOSPHATASE 83 IU/L (40-150); ANION GAP 22.1 mmol/L (8-16); BLOOD UREA NITROGEN 11 mg/dL (7-26); BUN/CREATININE RATIO 11 (6-25); CALCIUM 9.8 mg/dL (8.4-10.2); CARBON DIOXIDE 19 mmol/L (22-29); CHLORIDE 104 mmol/L (98-107); CREATINE KINASE 113 IU/L (30-200); CREATININE, SERUM 1.02 mg/dL (0.72-1.25); EST GLOMERULAR FILTRATION RATE > 60 ML/MIN (60-); GLUCOSE 200 mg/dL (74-118); POTASSIUM 3.1 mmol/L (3.5-5.1); SODIUM 142 mmol/L (136-145)
[2020-06-18 12:49] LABS: CLARITY,URINE CLEAR (CLEAR); COLOR,URINE YELLOW (YELLOW); KETONES,URINE 2+ (NEGATIVE); LEUKOCYTE ESTERASE ,URINE NEGATIVE (NEGATIVE); NITRITE,URINE NEGATIVE (NEGATIVE); PROTEIN,URINE DIPSTICK 2+ (NEGATIVE); RBC,URINE 0-5 /HPF (0-5); URINE UROBILINOGEN 0.2 mg/dL (0.2 - 1); WBC,URINE (MAN) 0-5 /HPF (0-5)
[2020-06-18 12:50] LABS: MUCUS,URINE FEW (RARE)
[2020-06-18] MEDS ORDERED: MORPHINE SULFATE INJ 4 MG/ML INJ 1ML ONE (12:56)
[2020-06-18] MEDS ORDERED: ONDANSETRON HCL INJ 2MG/ML 2ML 2 MG/ML VIAL ONE (12:56)
[2020-06-18 12:57] LABS: AMPHETAMINES SCREEN,URINE NEGATIVE (NEGATIVE); BENZODIAZEPINES SCREEN,URINE NEGATIVE (NEGATIVE); PHENCYCLIDINE SCREEN,URINE NEGATIVE (NEGATIVE)
[2020-06-18] MEDS ORDERED: ONDANSETRON HCL INJ 2MG/ML 2ML 2 MG/ML VIAL IV STA (13:02)
[2020-06-18] MEDS ORDERED: MORPHINE SULFATE INJ 2 MG/ML SYR IV STA (13:02)
[2020-06-18] MEDS ORDERED: MORPHINE SULFATE INJ 2 MG/ML SYR IV ONE (13:15)
[2020-06-18] MEDS ORDERED: ONDANSETRON HCL INJ 2MG/ML 2ML 2 MG/ML VIAL IV ONE (13:15)
[2020-06-18] MEDS ORDERED: IOPAMIDOL 370 MG/ML 200 ML INFUS..BTL INJ ONE (13:37)
[2020-06-18] MEDS ORDERED: SODIUM CHLORIDE 0.9% 50ML 50 ML ONE (13:37)
[2020-06-18] MEDS ORDERED: CEFEPIME 1GM/NS 0.9% 50 ML 50 ML IV STA (13:41)
[2020-06-18] MEDS ORDERED: DIPHENHYDRAMINE HCL INJ 50 MG/ML VIAL IV ONE (15:30)
[2020-06-18] MEDS ORDERED: METOCLOPRAMIDE HCL 10 MG/2ML VIAL IV ONE (15:30)
[2020-06-18] MEDS ORDERED: POTASSIUM CHLORIDE 20 MEQ TAB CR PO STA (16:20)
[2020-06-18] MEDS ORDERED: MORPHINE SULFATE INJ 2 MG/ML SYR IV PRN (16:30)
[2020-06-18] MEDS ORDERED: ONDANSETRON HCL INJ 2MG/ML 2ML 2 MG/ML VIAL IV PRN (16:30)
[2020-06-18] MEDS ORDERED: MORPHINE SULFATE INJ 4 MG/ML INJ 1ML IV PRN (16:30)
[2020-06-18 17:44] VITALS: BP 134/68
[2020-06-18 17:56] VITALS: BP 134/68
[2020-06-18] MEDS: SODIUM CHLORIDE 0.9% 1000ML 1,000 ML IV SCH (18:17)
[2020-06-18 21:00] VITALS: BP 140/82
[2020-06-19] VITALS (9 sets, daily range): BP systolic 100–130; BP diastolic 55–86
[2020-06-19] MEDS ORDERED: ACETAMINOPHEN 325 MG TAB PO PRN ×2 (00:45→11:30)
[2020-06-19] MEDS ORDERED: ALBUTEROL/IPRATROPIUM 3 ML NEB NEB PRN (00:45)
[2020-06-19] MEDS ORDERED: LIDOCAINE 4% PATCH TP PRN (00:45)
[2020-06-19] MEDS ORDERED: BENZONATATE 100 MG CAP PO PRN (00:45)
[2020-06-19] MEDS ORDERED: POTASSIUM CHLORIDE 20 MEQ TAB CR PO PRN (00:45)
[2020-06-19] MEDS ORDERED: MELATONIN 5 MG TABLET PO PRN (00:45)
[2020-06-19] MEDS ORDERED: ONDANSETRON HCL INJ 2MG/ML 2ML 2 MG/ML VIAL IV PRN (00:45)
[2020-06-19] MEDS ORDERED: DIPHENHYDRAMINE HCL 25 MG CAP PO PRN (00:45)
[2020-06-19] MEDS ORDERED: SIMETHICONE 80 MG CHEW PO PRN (00:45)
[2020-06-19] MEDS ORDERED: DOCUSATE SODIUM 100 MG CAP PO PRN (00:45)
[2020-06-19] MEDS ORDERED: DEXTROSE 50% SYRINGE 50 ML IV PRN (00:45)
[2020-06-19] MEDS ORDERED: POLYETHYLENE GLYCOL 3350 17 GM PACK PO PRN (00:45)
[2020-06-19] MEDS: PIPER-TAZ 3.375 GM 50 ML IV SCH ×4 (01:06→18:24)
[2020-06-19] MEDS: SODIUM CHLORIDE 0.9% 1000ML 1,000 ML IV SCH ×3 (02:25→21:01)
[2020-06-19] MEDS ORDERED: MORPHINE SULFATE INJ 4 MG/ML INJ 1ML IV PRN (04:30)
[2020-06-19 05:12] LABS: BASOPHILS # (AUTO) 0.1 (0.0-0.1); BASOPHILS % 0.3 % (0.0-1.0); EOSINOPHILS % 0.1 % (0.0-6.0); HEMATOCRIT 40.2 % (38.2-49.6); HEMOGLOBIN 14.5 g/dL (14.0-18.0); LYMPHOCYTES # (AUTO) 2.3 (1.0-3.2); MEAN CORPUSCULAR HEMOGLOBIN 31.7 pg (28-32); MEAN CORPUSCULAR HGB CONC 36.1 g/dL (31-35); MONOCYTES % 11.6 % (4.4-11.3); NEUTROPHILS # (AUTO) 13.1 (2.1-6.9); NEUTROPHILS % 74.6 % (38.7-80.0); PLATELET COUNT 217 x10e3/uL (140-360); RED BLOOD COUNT 4.57 x10e6/uL (4.3-5.7); RED CELL DISTRIBUTION WIDTH 11.6 % (11.7-14.4)
[2020-06-19 05:40] LABS: ALANINE AMINOTRANSFERASE 12 IU/L (0-55); ALBUMIN 4.3 g/dL (3.5-5.0); ALBUMIN/GLOBULIN RATIO 1.9 (0.8-2.0); ALKALINE PHOSPHATASE 70 IU/L (40-150); ANION GAP 16.2 mmol/L (8-16); BLOOD UREA NITROGEN 11 mg/dL (7-26); BUN/CREATININE RATIO 12 (6-25); CALCIUM 9.1 mg/dL (8.4-10.2); CARBON DIOXIDE 23 mmol/L (22-29); CHLORIDE 108 mmol/L (98-107); EST GLOMERULAR FILTRATION RATE > 60 ML/MIN (60-); GLUCOSE 111 mg/dL (74-118); MAGNESIUM 1.9 MG/DL (1.3-2.1); POTASSIUM 4.2 mmol/L (3.5-5.1); SODIUM 143 mmol/L (136-145)
[2020-06-19] MEDS ORDERED: PIPER-TAZ 3.375 GM 50 ML IV SCH (06:00)
[2020-06-19] MEDS ORDERED: BUPIVACAINE HCL 0.5% INJ 30 ML VIAL INJ ONE (10:04)
[2020-06-19] MEDS ORDERED: SUGAMMADEX SODIUM 200 MG/2 ML VIAL IV ONE (11:39)
[2020-06-19] MEDS ORDERED: MEPERIDINE HCL INJ 25 MG/ML VIAL ONE (12:00)
[2020-06-19] MEDS ORDERED: ROCURONIUM BROMIDE 10 MG/ML 5ML VIAL IV ONE (13:04)
[2020-06-19] MEDS ORDERED: ONDANSETRON HCL INJ 2MG/ML 2ML 2 MG/ML VIAL ONE (13:04)
[2020-06-19] MEDS ORDERED: DEXAMETHASONE SOD PHOS INJ 4 MG/ML VIAL ONE (13:04)
[2020-06-19] MEDS ORDERED: LIDOCAINE HCL 2% LOCAL INJ 5 ML SDV VIAL INJ ONE (13:04)
[2020-06-19] MEDS ORDERED: SEVOFLURANE INHAL SOLN 250 ML PEN BTL ONE (13:04)
[2020-06-19] MEDS ORDERED: PROPOFOL IV EMULSION 10 MG/ML 20 ML VIAL ONE (13:04)
[2020-06-19] MEDS ORDERED: KETOROLAC TROMETHAMINE 30 MG/ML VIAL ONE (13:04)
[2020-06-19] MEDS: HYDROCODONE/APAP 5MG-325MG TAB PO PRN (16:20)
[2020-06-19] MEDS: PANTOPRAZOLE SOD 40 MG TABEC PO SCH (16:25)
[2020-06-19] MEDS: MORPHINE SULFATE INJ 4 MG/ML INJ 1ML IV PRN (19:54)
[2020-06-19] MEDS: ONDANSETRON HCL INJ 2MG/ML 2ML 2 MG/ML VIAL IV PRN (19:54)
[2020-06-20] MEDS: PIPER-TAZ 3.375 GM 50 ML IV SCH ×3 (00:12→12:35)
[2020-06-20] MEDS: HYDROCODONE/APAP 5MG-325MG TAB PO PRN (00:22)
[2020-06-20 00:28] VITALS: BP 127/82
[2020-06-20] MEDS: MORPHINE SULFATE INJ 4 MG/ML INJ 1ML IV PRN (04:46)
[2020-06-20] MEDS: ONDANSETRON HCL INJ 2MG/ML 2ML 2 MG/ML VIAL IV PRN (04:46)
[2020-06-20 05:51] LABS: BASOPHILS % 0.1 % (0.0-1.0); EOSINOPHILS % 0.2 % (0.0-6.0); HEMATOCRIT 37.4 % (38.2-49.6); HEMOGLOBIN 13.6 g/dL (14.0-18.0); LYMPHOCYTES # (AUTO) 1.7 (1.0-3.2); LYMPHOCYTES % 11.2 % (18.0-39.1); MEAN CORPUSCULAR HEMOGLOBIN 31.6 pg (28-32); MEAN CORPUSCULAR HGB CONC 36.4 g/dL (31-35); MEAN CORPUSCULAR VOLUME 86.8 fL (81-99); MONOCYTES # (AUTO) 1.7 (0.2-0.8); MONOCYTES % 11.3 % (4.4-11.3); NEUTROPHILS # (AUTO) 11.5 (2.1-6.9); NEUTROPHILS % 76.9 % (38.7-80.0); PLATELET COUNT 163 x10e3/uL (140-360); RED BLOOD COUNT 4.31 x10e6/uL (4.3-5.7); RED CELL DISTRIBUTION WIDTH 11.5 % (11.7-14.4)
[2020-06-20 06:00] VITALS: BP 137/83
[2020-06-20 06:12] LABS: ANION GAP 19.4 mmol/L (8-16); BLOOD UREA NITROGEN 12 mg/dL (7-26); BUN/CREATININE RATIO 14 (6-25); CALCIUM 8.2 mg/dL (8.4-10.2); CARBON DIOXIDE 20 mmol/L (22-29); CHLORIDE 104 mmol/L (98-107); CREATININE, SERUM 0.83 mg/dL (0.72-1.25); EST GLOMERULAR FILTRATION RATE > 60 ML/MIN (60-); GLUCOSE 112 mg/dL (74-118); POTASSIUM 3.4 mmol/L (3.5-5.1); SODIUM 140 mmol/L (136-145)
[2020-06-20 07:58] VITALS: BP 137/83
[2020-06-20] MEDS: PANTOPRAZOLE SOD 40 MG TABEC PO SCH (08:26)
[2020-06-20 09:16] VITALS: BP 115/56
[2020-06-20] MEDS: SODIUM CHLORIDE 0.9% 1000ML 1,000 ML IV SCH (10:39)
[2020-06-20 12:09] VITALS: BP 118/74
[2020-06-20 16:38] LABS: BASOPHILS % 0.4 % (0.0-1.0); EOSINOPHILS % 0.3 % (0.0-6.0); HEMATOCRIT 38.5 % (38.2-49.6); HEMOGLOBIN 13.9 g/dL (14.0-18.0); LYMPHOCYTES % 18.8 % (18.0-39.1); MEAN CORPUSCULAR HEMOGLOBIN 31.7 pg (28-32); MEAN CORPUSCULAR HGB CONC 36.1 g/dL (31-35); MEAN CORPUSCULAR VOLUME 87.7 fL (81-99); MONOCYTES # (AUTO) 1.3 (0.2-0.8); MONOCYTES % 12.2 % (4.4-11.3); NEUTROPHILS # (AUTO) 7.3 (2.1-6.9); NEUTROPHILS % 67.9 % (38.7-80.0); PLATELET COUNT 194 x10e3/uL (140-360); RED BLOOD COUNT 4.39 x10e6/uL (4.3-5.7); RED CELL DISTRIBUTION WIDTH 11.5 % (11.7-14.4)
[2020-06-20 17:20] VITALS: BP 127/74
== END 2020-06-20 18:00 | disposition home or self-care (01) ==
LOC: ER 11:55 → ERHOLD 16:24 → MED/SURG2 17:41
PROVIDERS: ADMIT Internal Medicine; ATTEND Internal Medicine
DX: K35.80 Unspecified acute appendicitis (principal); Z20.822 Contact with and (suspected) exposure to COVID-19; E86.0 Dehydration
CPT/HCPCS: 36415 ×3; 44970; 74177; 80048; 80053 ×2; 80307; 81001; 82550; 82553; 83735; 84484; 85025 ×3; 88304; 99284; G0378 ×3; J0692; J1100; J1200; J1885; J2001; J2175; J2270 ×3; J2405 ×3; J2543 ×2; J2704; J2765; J7030 ×3; Q9967; S0164 ×2; U0002